=== PATIENT | female | born 1985 | race Caucasian/White ===

== ENCOUNTER 2019-10-29 17:08 | Emergency (ER) | payer OTHER, SELFPAY ==
--- NOTE | ~2019-10-29 | XR_ITS ---
EXAMINATION: XR abdomen obstructive series DATE: 10/29/2019 18:15 INDICATION: Abdominal pain and constipation. 4 days postop. TECHNIQUE: Supine and upright views of the abdomen. FINDINGS: 11/11/2015 The visualized lung parenchyma is normal.. There is a nonspecific bowel gas pattern. There is moderat e gas in the small bowel centrally without significant dilation. There are air-fluid levels. Gas and stool are seen throughout the colon to the level of the rectum. There is no free air. There is sligh t diastases of the pubic symphysis. IMPRESSION: 1. Nonspecific bowel gas pattern, possibly ileus. Reviewed, dictated and finalized at location A.
[2019-10-29 17:37] VITALS: BP 131/88; PULSE 89; RESP 24; TEMP 37; O2SAT 100
[2019-10-29 17:48] LABS: Hemoglobin 10.8 g/dL (12.0-15.0); Mean Corpuscular HGB Conc 32.7 g/dl (32-36); Mean Corpuscular Hemoglobin 30.4 pg (26-34); Mean Platelet Volume 11.6 fl (7.4-10.4); Platelet Count Result 179 k/mm3 (150-375); Red Blood Count 3.55 M/mm3 (4.2-5.4); Red Cell Distribution Width 12.8 % (11.5-14.5); White Blood Count 9.8 K/mm3 (4.5-10.0)
[2019-10-29 18:00] LABS: Alanine Aminotransferase 23 U/L (4-35); Albumin Level 3.6 g/dL (3.5-5.1); Alkaline Phosphatase 176 U/L (38-126); Aspartate Amino Transferase 41 U/L (14-36); Bilirubin,Total 0.2 mg/dL (0.2-1.3); Blood Urea Nitrogen 9 mg/dL (7-17); Calcium 8.3 mg/dL (8.4-10.2); Carbon Dioxide 26 mmol/L (22-30); Chloride 107 mmol/L (98-107); Estimated CRCL calculation 115 ml/min; Estimated Glomerular Filt Rate > 60; Glucose 99 mg/dL (65-105); Lipase 66 U/L (23-300); Sodium 139 mmol/L (137-145)
[2019-10-29 18:11] LABS: Band Neutrophils Percent 3 % (0-6); Eosinophils Absolute Manual 0.09 K/mm3 (0.02-0.5); Eosinophils Percent Manual 1 % (0-4); Lymphocytes Absolute Manual 0.98 K/mm3 (1.1-4.5); Monocytes Absolute Manual 0.29 K/mm3 (0.1-0.90); Monocytes Percent Manual 3 % (3-9); Neutrophils Absolute Manual 8.42 K/mm3 (1.7-7.2); Neutrophils Percent Manual 83 % (46-73); Platelet Estimate Adequate (Adequate); Total Cells Counted 100
[2019-10-29] MEDS: SODIUM CHLORIDE 0.9% IV 1,000 ML 999 ML IV CONT (18:26)
[2019-10-29] MEDS: FAMOTIDINE 20 MG/2 ML VIAL IV PUSH (18:28)
[2019-10-29] MEDS: polyethylene glycoL 3350 17 GM POWD.PACK PO ×2 (18:43→20:37)
[2019-10-29] MEDS: LIDOCAINE HCL 2% GEL UROJET 10 ML PKG (18:44)
[2019-10-29] MEDS: IBUPROFEN IV 800 MG/200 ML 800 MG/200 ML BAG 400 MG IVPB (19:32)
--- NOTE | 2019-10-29 20:22 | ED.GENADULT ---
HPI - General Adult General Chief complaint: Unspecified <BASILIO Mandujano Last Filed: 10/29/19 20:44> Stated complaint: constipated. 4 days post <BASILIO Mandujano Last Filed: 10/29/19 20:44> Time Seen by Provider: 10/29/19 17:52 <BASILIO Mandujano Last Filed: 10/29/19 20:44> Source: patient and family <BASILIO Mandujano Last Filed: 10/29/19 20:44> Mode of arrival: ambulatory <BSAILIO Mandujano Last Filed: 10/29/19 20:44> Limitations: no limitations <BASILIO Mandujano Last Filed: 10/29/19 20:44> History of Present Illness HPI narrative: Patient is a 34-year-old female who presents to emergency department for evaluation of not having had a bowel movement for the last 5 days patient is 5 days status post vaginal delivery. Patient has been attempting [id number] stool softeners and laxatives with no improvement. Patient notes discomfort in the lower pelvic region and left side of the abdomen. Patient denies any fever chills nausea vomiting rectal bleeding or melena. Patient notes she does have hemorrhoids currently. <BASILIO Mandujano Last Filed: 10/29/19 20:44> Related Data Home medications: Home Medications Medication Instructions Recorded Confirmed alprazolam 0.25 mg PO HS PRN 10/29/19 10/29/19 cyclobenzaprine 10 mg PO BID PRN 10/29/19 10/29/19 trazodone 50 mg PO HS 10/29/19 10/29/19 <BASILIO Mandujano Last Filed: 10/29/19 20:44> Allergies/adverse reactions: Allergies Allergy/AdvReac Type Severity Reaction Status Date / Time latex Allergy Intermediate HIVES Verified 10/29/19 18:01 Penicillins Allergy Unknown Hives Verified 10/29/19 18:01 sulfamethoxazole Allergy Unknown Anaphylactic Verified 10/29/19 18:01 Shock trimethoprim Allergy Unknown Anaphylactic Verified 10/29/19 18:01 Shock metoclopramide [From Reglan] AdvReac Anxiety Verified 10/29/19 18:01 <BASILIO Mandujano Last Filed: 10/29/19 20:44> Review of Systems Review of Systems: All systems reviewed & are unremarkable except as noted in HPI and below <Rakesh Samano PA-C - Last Filed: 10/29/19 20:44> [facility] Past Medical History Medical History: Medical History (Updated 10/30/19 @ 00:00 by Shayna Bailey) Anxiety <Rakesh Samano PA-C - Last Filed: 10/29/19 20:44> Social History Social History: Social History Gender identity (if verbalized by the patient): Female <Rakesh Samano PA-C - Last Filed: 10/29/19 20:44> Exam Narrative: Exam Narrative: GENERAL: Well-appearing, well-nourished, and in no acute distress. HEAD: Normocephalic, atraumatic. EYES: PERRLA and EOMI. ENT: Nares clear, no rhinorrhea or epistaxis. Mucous membranes moist. CHEST: Clear to auscultation. No respiratory distress. No wheezes rales or rhonchi HEART: Regular rate and rhythm. No murmur heard. Normal peripheral pulses. ABDOMEN: Soft, tenderness in the lower abdomen, distended EXTREMITIES: Normal range of motion. No edema. SKIN: Warm, dry, no rash. NEURO: No focal deficits. Alert and oriented x3. PSYCH: Normal mood and affect. <Rakesh Samano PA-C - Last Filed: 10/29/19 20:44> Course Course Emergency Course: Patient in the room at this time successfully able to have a bowel movement passing her stool ball. <Rakesh Samano PA-C - Last Filed: 10/29/19 20:44> Vital Signs Vital signs: Vital Signs Temperature 98.6 F 10/29/19 17:37 Pulse Rate 89 10/29/19 17:37 Respiratory Rate 24 H 10/29/19 17:37 Blood Pressure 131/88 10/29/19 17:37 Pulse Oximetry 100 10/29/19 17:37 Temperature 98.6 F 10/29/19 17:37 Pulse Rate 83 10/29/19 20:55 Respiratory Rate 20 10/29/19 20:55 Blood Pressure 134/74 10/29/19 20:55 Pulse Oximetry 99 10/29/19 20:55 <Rakesh Samano PA-C - Last Filed: 10/29/19
[2019-10-29 20:55] VITALS: BP 134/74; PULSE 83; RESP 20; O2SAT 99
--- NOTE | 2019-10-29 20:57 | PC.NURSE ---
1845 small results from soap suds enema only took in small amt of water 1930 took in alot more water this time and was able to pass large amt of stool pt feels much better
== END 2019-10-29 20:57 | disposition home or self-care (01) ==
PROVIDERS: Emergency Provider Emergency Medicine; PCP Registered Nurse
DX: O99.63 Diseases of the digestive system complicating the puerperium (principal); K59.00 Constipation, unspecified; O99.345 Other mental disorders complicating the puerperium; F41.9 Anxiety disorder, unspecified; R93.5 Abnormal findings on diagnostic imaging of other abdominal regions, including retroperitoneum
CPT/HCPCS: 36415; 74019; 80053; 83690; 85025; 96361; 96365; 96367; 96375; 99284; J0131; J1741; J2060; J7030

== ENCOUNTER 2020-02-22 13:02 | Emergency (ER) | payer OTHER, SELFPAY ==
[2020-02-22] VITALS (9 sets, daily range): BP systolic 108–147; BP diastolic 73–93; PULSE 86–107; RESP 12–18; TEMP 36.7; O2SAT 98–100
[2020-02-22 14:36] LABS: Basophils Percent Auto 0.4 % (0.2-1.2); Eosinophils Percent Auto 0.3 % (0-4.4); Hematocrit 39.5 % (37.0-47.0); Hemoglobin 13.1 g/dL (12.0-15.0); Immature Granulocyte Absolute 0.02 K/mm3 (0.00-0.031); Immature Granulocyte Percent A 0.3 % (0-0.5); Lymphocytes Absolute Auto 1.27 K/mm3 (0.9-3.2); Lymphocytes Percent Auto 17.8 % (18.3-44.2); Mean Corpuscular HGB Conc 33.2 g/dl (32-36); Mean Corpuscular Hemoglobin 29.4 pg (26-34); Mean Corpuscular Volume 88.8 fl (80-100); Mean Platelet Volume 10.7 fl (7.4-10.4); Monocytes Absolute Auto 0.3 K/mm3 (0.1-0.6); Monocytes Percent Auto 3.5 % (2.6-8.5); Neutrophils Absolute Auto 5.6 K/mm3 (1.3-6.7); Neutrophils Percent Auto 77.7 % (45.5-73.1); Platelet Count Result 231 k/mm3 (150-375); Red Blood Count 4.45 M/mm3 (4.2-5.4); Red Cell Distribution Width 12.7 % (11.5-14.5); White Blood Count 7.1 K/mm3 (4.5-10.0)
[2020-02-22 14:51] LABS: Alanine Aminotransferase 20 U/L (4-35); Albumin Level 4.6 g/dL (3.5-5.1); Alkaline Phosphatase 83 U/L (38-126); Anion Gap 10 mmol/L (8-16); Aspartate Amino Transferase 30 U/L (14-36); Bilirubin,Total 0.3 mg/dL (0.2-1.3); Blood Urea Nitrogen 9 mg/dL (7-17); Calcium 9.6 mg/dL (8.4-10.2); Carbon Dioxide 27 mmol/L (22-30); Chloride 105 mmol/L (98-107); Estimated CRCL calculation 96 ml/min; Estimated Glomerular Filt Rate > 60; Glucose 118 mg/dL (65-105); Potassium 3.9 mmol/L (3.4-5.0); Sodium 142 mmol/L (137-145)
--- NOTE | 2020-02-22 19:28 | ED.ANXIETY ---
HPI - Anxiety General Chief Complaint: Anxiety Stated Complaint: multiple complaints/headache/abd pain/dizziness Time Seen by Provider: 02/22/20 18:23 History of Present Illness HPI narrative: Patient is a 34-year-old female who presents to emergency department for evaluation of anxiety and panic attacks of increasing nature patient with longstanding history of anxiety panic attacks has been also be getting migraine headaches patient lives at home has fear over the pandemic has no friends but does have her at home is also has young children that she is feeling are also causing stress. Patient denies any suicidal or homicidal ideation. Patient saw her therapist on Tuesday and was started on Valium. Related Data Home Medications Medication Instructions Recorded Confirmed alprazolam 0.25 mg PO HS PRN 10/29/19 10/29/19 cyclobenzaprine 10 mg PO BID PRN 10/29/19 10/29/19 trazodone 50 mg PO HS 10/29/19 10/29/19 Allergies Allergy/AdvReac Type Severity Reaction Status Date / Time latex Allergy Intermediate HIVES Verified 02/22/20 14:25 Penicillins Allergy Unknown Hives Verified 02/22/20 14:25 sulfamethoxazole Allergy Unknown Anaphylactic Verified 02/22/20 14:25 Shock trimethoprim Allergy Unknown Anaphylactic Verified 02/22/20 14:25 Shock metoclopramide [From Reglan] AdvReac Anxiety Verified 02/22/20 14:25 Review of Systems Review of Systems: All systems reviewed & are unremarkable except as noted in HPI and below PMFSH Past Medical History Medical History Anxiety Social History Social History (Updated 02/22/20 @ 19:32 by Rakesh Samano PA-C) Substance use type: marijuana Gender identity (if verbalized by the patient): Female Exam Narrative: Exam Narrative: GENERAL: Well-appearing, well-nourished, and in no acute distress. HEAD: Normocephalic, atraumatic. EYES: PERRLA and EOMI. ENT: Nares clear, no rhinorrhea or epistaxis. Mucous membranes moist. CHEST: Clear to auscultation. No respiratory distress. No wheezes rales or rhonchi HEART: Regular rate and rhythm. No murmur heard. Normal peripheral pulses. ABDOMEN: Soft, nontender, nondistended EXTREMITIES: Normal range of motion. No edema. SKIN: Warm, dry, no rash. NEURO: No focal deficits. Alert and oriented x3. Cranial nerves II through XII grossly intact PSYCH: Acutely anxious normal affect Course Course Emergency Course: Patient in the room at this time felt appropriate for discharge home will follow with primary care and specialist no high risk changes in the blood work was given medications with improvement Vital Signs Vital signs: Vital Signs Temperature 98.0 F 02/22/20 14:19 Pulse Rate 105 H 02/22/20 14:19 Respiratory Rate 18 02/22/20 14:19 Blood Pressure 119/76 02/22/20 14:19 Pulse Oximetry 98 02/22/20 14:19 Temperature 98.0 F 02/22/20 14:19 Pulse Rate 86 02/22/20 20:22 Respiratory Rate 12 02/22/20 20:22 Blood Pressure 115/88 02/22/20 20:22 Pulse Oximetry 100 02/22/20 20:22 MDM - Anxiety MDM Narrative Medical decision making narrative: Patient in the room in no distress with anxiety and panic disorder will be discharged home with plan follow-up with primary care patient felt appropriate for outpatient reevaluation Lab Data Result diagrams: 02/22/20 14:27 02/22/20 14:27 Labs: Lab Results 02/22/20 02/22/20 02/22/20 Range/Units 14:27 14:27 19:35 WBC 7.1 (4.5-10.0) K/mm3 RBC 4.45 (4.2-5.4) M/mm3 Hgb 13.1 (12.0-15.0) g/dL Hct 39.5 (37.0-47.0) % MCV 88.8 (80-100) fl MCH 29.4 (26-34) pg MCHC 33.2 (32-36) g/dl RDW 12.7 (11.5-14.5) % Plt Count 231 (150-375) k/mm3 MPV 10.7 H (7.4-10.4) fl Immature Gran % (Auto) 0.3 (0-0.5) % Neut % (Auto) 77.7 H (45.5-73.1) % Lymph % (Auto) 17.8 L (18.3-44.2) % [place] % (Auto) 3.5 (2.6-8.5) % Eos
[2020-02-22] MEDS: diazePAM INJ (*CRX) 10 MG/2 ML SYRINGE 5 MG IV PUSH (19:34)
[2020-02-22] MEDS: SODIUM CHLORIDE 0.9% IV 1,000 ML 999 ML IV CONT (19:34)
[2020-02-22 19:51] LABS: Add Urine Microscopic? YES; Appearance Urine Cloudy (Clear); Bilirubin Urine Negative (Negative); Blood Urine Negative (Negative); Color Urine Yellow (Yellow); Glucose Urine UA Negative (Negative); Ketones Urine 1+ mg/dL (Negative); Leukocyte Esterase Ur Negative LEU/UL (Negative); Mucus Urine Heavy /lpf; Nitrate Urine Negative (Negative); Protein Urine 1+ mg/dL (Negative); RBC Urine 0-2 /hpf (0-2); Specific Grav Ur 1.021 (1.001-1.035); Squamous Epithelial Cell Urine Many /hpf (Few); Urobilinogen Urine Negative mg/dL (<2.0); WBC Urine 0-3 /hpf
[2020-02-22] MEDS: LORazepam INJ (*CRX) 2 MG/ML VIAL 1 MG IV PUSH (20:57)
== END 2020-02-22 21:36 | disposition home or self-care (01) ==
PROVIDERS: Emergency Medicine Emergency Medical Services; Emergency Provider Emergency Medicine; PCP Registered Nurse
DX: F41.9 Anxiety disorder, unspecified (principal); G43.909 Migraine, unspecified, not intractable, without status migrainosus
CPT/HCPCS: 36415; 80053; 81001; 81025; 85025; 96361; 96374; 96375; 99284; J2060; J3360; J7030

== ENCOUNTER → 2020-04-14 10:52 | Outpatient (CLI) | payer OTHER, SELFPAY ==
--- NOTE | ~2020-04-14 | US_ITS ---
EXAMINATION: US abdomen complete DATE: 04/14/2020 11:16 INDICATION: Unspecified abdominal pain TECHNIQUE: Multiple grayscale and Doppler ultrasound images of the abdomen were obtained. COMPARISON: 11/11/2015 FINDINGS: The head and body of the pancreas are normal. The pancreatic tail is obscured by bowel gas. The liver is normal with normal echogenicity and echotexture. No surface nodularity. Normal hepatope mason flow in the main portal vein. The gallbladder is normal with no abnormal wall thickening, pericho lecystic fluid or stones. The normal common bile duct measures 3 mm. There was no sonographic Solitario sign. The visualized portions of the aorta and inferior vena cava are normal. The right kidney measures 11.2 x 4.4 x 5.6 cm. The left kidney measures 10.6 x 4.8 x 4.9 cm. The kidn eys demonstrate normal parenchymal echogenicity. There is no hydronephrosis. The spleen is normal in appearance and measures 10.1 cm. IMPRESSION: 1. No sonographic correlate for the patient's symptoms. Reviewed, dictated and finalized at location A. AL ARTS THERAPIST
== END ==
PROVIDERS: PCP Nurse Practitioner; Visit Provider Nurse Practitioner
DX: R10.9 Unspecified abdominal pain (principal)
CPT/HCPCS: 76700

== ENCOUNTER 2020-06-30 08:18 | Outpatient (CLI) | payer OTHER, SELFPAY ==
--- NOTE | ~2020-06-30 | NM_ITS ---
EXAM: NM gastric emptying study DATE: 06/30/2020 13:06 INDICATION: Nausea and vomiting. TECHNIQUE: A gastric emptying study was performed using the methodology of Dayday PURI, et al. J Nucl Med 2007; 48:568-572. The patient was given a meal consisting of 2 scrambled eggs labeled with 0.944 mCi Tc-99m sulfur colloid, 2 slices of toast, two packages of jam, and approximately 120 mL of water . Simultaneous anterior and posterior 1-min images of the abdomen were obtained with the patient supi ne at multiple time points over a total period of 4 hours. The geometric mean of anterior and posteri or views was determined, and the percentage retention was calculated for each time point. COMPARISON: CT abdomen and pelvis 01/02/2018 FINDINGS: Gastric retention of the radiotracer-labeled meal was 62%, 34%, and 3% at the 1-hour, 2-ho ur, and 4-hour time points, respectively. With this technique, apparent rapid gastric emptying is sug gested by <30% gastric retention at 1 hour. Delayed gastric emptying is defined by gastric retention of >90% at 1 hour, >60% retention at 2 hours, or >10% retention at 4 hours. IMPRESSION: 1. Normal gastric emptying. Reviewed, dictated and finalized at location A. NICAL SYSTEM ANALYST IMPRESSION: 1. Normal gastric emptying.
== END 2020-06-30 08:19 | disposition home or self-care (01) ==
PROVIDERS: PCP Nurse Practitioner; Visit Provider Internal Medicine Gastroenterology
DX: R11.2 Nausea with vomiting, unspecified (principal)
CPT/HCPCS: 78264; A9541

== ENCOUNTER → 2020-07-22 00:34 | Outpatient (CLI) | payer OTHER, SELFPAY ==
[2020-07-22 18:31] LABS: SARS-CoV-2 RNA PCR Negative
== END ==
PROVIDERS: PCP Nurse Practitioner; Visit Provider Internal Medicine Gastroenterology
DX: Z01.812 Encounter for preprocedural laboratory examination (principal); Z20.822 Contact with and (suspected) exposure to COVID-19
CPT/HCPCS: C9803; U0003; U0005

== ENCOUNTER 2020-07-25 04:12 | Day surgery (SDC) | payer OTHER, SELFPAY ==
[2020-07-15 13:25] VITALS: BMI 29.2
[2020-07-25] MEDS: LACTATED RINGERS 1,000 ML 150 ML IV CONT (09:38)
[2020-07-25 09:41] VITALS: BP 103/65; PULSE 83; RESP 20; TEMP 36.2; O2SAT 99; BMI 27.7
--- NOTE | 2020-07-25 10:01 | WPDANESEPPF ---
Anes - Initial Pre Proc Eval Procedure: Operation Date: 07/25/20 09:00 Proposed Procedures p Esophagogastroduodenoscopy - Mihai Knox MD Date/Time: 07/25/20 10:01 Surgeon: Mihai Knox MD Pre Op Diagnosis: nausea, vomiting Patient Data Age: 35 Gender: F Height: 5 ft 3 in Weight: 71.1 kg Last Vital Signs Temp 97.1 F L 07/25/20 09:41 Pulse 83 07/25/20 09:41 Resp 20 07/25/20 09:41 BP 103/65 07/25/20 09:41 Pulse Ox 99 07/25/20 09:41 Allergies Allergy/AdvReac Type Severity Reaction Status Date / Time amoxicillin Allergy hives Verified 07/25/20 09:17 sulfamethoxazole Allergy throat Verified 07/25/20 09:17 [From Bactrim] swelling trimethoprim [From Bactrim] Allergy throat Verified 07/25/20 09:17 swelling metoclopramide [From Reglan] AdvReac Anxiety Verified 07/25/20 09:17 Home Medications Medication Instructions Recorded Confirmed Type hydroxyzine HCl 50 mg tablet 50 mg PO TID 03/13/20 07/15/20 History multivitamin with minerals 1 tablet PO DAILY 03/13/20 07/15/20 History sucralfate 1 gram tablet 1 g PO BID tablet 03/13/20 07/15/20 History omeprazole 40 mg capsule,delayed 40 mg PO DAILY #90 cap 05/21/20 07/15/20 Rx release diazepam 10 mg tablet 10 mg PO TID PRN 06/05/20 07/15/20 History famotidine 20 mg tablet 20 mg PO DAILY #30 tablet 06/05/20 07/15/20 Rx promethazine 25 mg tablet 25 mg PO BID PRN tablet 06/05/20 07/15/20 History tizanidine 2 mg tablet See Rx Instructions .ROUTE 07/04/20 07/15/20 Rx .COMPLEX #60 tablet ondansetron HCl 4 mg tablet See Rx Instructions .ROUTE 07/14/20 07/15/20 Rx .COMPLEX #30 tablet trazodone 100 mg PO HS 07/15/20 07/15/20 History acidophilus-pectin, citrus 1 cap PO DAILY 07/25/20 07/25/20 History [Acidophilus Probiotic] Patient hx anesthesia problems: none Family hx anesthesia problems: none [facility] Past Medical History Medical History Allergies Anxiety Anxiety GERD (gastroesophageal reflux disease) Headache, migraine Nausea & vomiting Stomach ulcer UTI (urinary tract infection) Chronic UTI's after sex Surgical History Surgical History History of dilatation and curettage Family History Family History Mother Diabetes mellitus COPD (chronic obstructive pulmonary disease) Arthrosis Father Hypertension Migraine High cholesterol Grandparent Alzheimers disease Diabetes mellitus Heart disease Grandparent Heart disease Grandparent Diabetes mellitus Arthrosis Sibling Depression Epilepsy Migraine Social History Social History (Updated 06/05/20 @ 11:58 by Stella Galindo CMA) Smoking status: Never smoker Tobacco type: cigarettes and e-cigarettes/vaping Alcohol intake: never Substance use type: does not use Living arrangements: with family Gender identity (if verbalized by the patient): Female Spiritual care concerns: No Anes - Eval Final PreProcedure Day of Procedure 07/25/20 10:01 Patient weight: normal Heart: regular rate and rhythm Lungs: clear to auscultation Airway: Mallampati scale class II Neurological: alert and oriented Last oral intake: >/= 8 hours ASA classification: II Emergent: no Anesthetic plan: proceed Anesthesia type and monitoring: general GIVS and standard monitoring Informed Consent: The patient's anesthetic plan and its attendant risks and benefits were discussed with the patient/family/POA. Questions were solicited and answers provided to the satisfaction of the patient/family/POA.
--- NOTE | 2020-07-25 10:15 | PM.HPGS ---
History of Present Illness History of Present Illness Consent: Risks, benefits, and alternatives have been discussed and questions answered. Patient agrees to proceed with procedure. Chief complaint: nausea, vomiting Narrative: Jody Iyer is a 35 year old female referred for persistent nausea vomiting abdominal pain. This has been present for 3 years. She was originally told that she had ulcers when she had EGD in [place] of an . Apparently no biopsies were done. She has been on medicine for nausea as well as Carafate and omeprazole continuously without any relief. Apparently ultrasound recently was done that was negative Review of Systems Review of Systems: All systems reviewed & are unremarkable except as noted in HPI and below PMFSH Past Medical History Medical History Allergies Anxiety Anxiety GERD (gastroesophageal reflux disease) Headache, migraine Nausea & vomiting Stomach ulcer UTI (urinary tract infection) Chronic UTI's after sex Surgical History Surgical History History of dilatation and curettage Family History Family History Mother Diabetes mellitus COPD (chronic obstructive pulmonary disease) Arthrosis Father Hypertension Migraine High cholesterol Grandparent Alzheimers disease Diabetes mellitus Heart disease Grandparent Heart disease Grandparent Diabetes mellitus Arthrosis Sibling Depression Epilepsy Migraine Social History Social History Smoking status: Never smoker Tobacco type: cigarettes and e-cigarettes/vaping Alcohol intake: never Substance use type: does not use Living arrangements: with family Gender identity (if verbalized by the patient): Female Spiritual care concerns: No Meds Home Medications and Allergies Home Medications Medication Instructions Recorded Confirmed Type hydroxyzine HCl 50 mg tablet 50 mg PO TID 03/13/20 07/15/20 History multivitamin with minerals 1 tablet PO DAILY 03/13/20 07/15/20 History sucralfate 1 gram tablet 1 g PO BID tablet 03/13/20 07/15/20 History omeprazole 40 mg capsule,delayed 40 mg PO DAILY #90 cap 05/21/20 07/15/20 Rx release diazepam 10 mg tablet 10 mg PO TID PRN 06/05/20 07/15/20 History famotidine 20 mg tablet 20 mg PO DAILY #30 tablet 06/05/20 07/15/20 Rx promethazine 25 mg tablet 25 mg PO BID PRN tablet 06/05/20 07/15/20 History tizanidine 2 mg tablet See Rx Instructions .ROUTE 07/04/20 07/15/20 Rx .COMPLEX #60 tablet ondansetron HCl 4 mg tablet See Rx Instructions .ROUTE 07/14/20 07/15/20 Rx .COMPLEX #30 tablet trazodone 100 mg PO HS 07/15/20 07/15/20 History acidophilus-pectin, citrus 1 cap PO DAILY 07/25/20 07/25/20 History [Acidophilus Probiotic] Allergies Allergy/AdvReac Type Severity Reaction Status Date / Time amoxicillin Allergy hives Verified 07/25/20 09:17 sulfamethoxazole Allergy throat Verified 07/25/20 09:17 [From Bactrim] swelling trimethoprim [From Bactrim] Allergy throat Verified 07/25/20 09:17 swelling metoclopramide [From Reglan] AdvReac Anxiety Verified 07/25/20 09:17 Vital Signs Vital Signs - 24 hr 07/25/20 09:41 Temperature 36.2 C L Pulse Rate 83 Respiratory Rate 20 Blood Pressure 103/65 Pulse Oximetry 99 Exam Const: General: alert Orientation/consciousness: patient oriented x3 Resp: Auscultation: clear to auscultation bilaterally Cardio: Rhythm: regular rhythm GI: GI Palp: Yes Soft to palpation and No Tenderness to palpation present (GI) Neuro: General: patient oriented x3 Assessment and Plan Assessment and plan (1) Nausea & vomiting: Code(s): R11.2 - Nausea with vomiting, unspecified Status: Acute Assessment and Plan: EGD with possible biopsy or dilatation or cautery.
[2020-07-25 10:27] VITALS: BP 99/64; PULSE 64; RESP 29; O2SAT 97
[2020-07-25 10:37] VITALS: BP 111/79; PULSE 66; RESP 23; O2SAT 99
[2020-07-25 11:07] VITALS: BP 110/75; PULSE 69; RESP 15; O2SAT 98
== END 2020-07-25 11:22 | disposition home or self-care (01) ==
PROVIDERS: PCP Nurse Practitioner; Visit Provider Internal Medicine Gastroenterology
PROC: 0DJ08ZZ Inspection of Upper Intestinal Tract, Via Natural or Artificial Opening Endoscopic (ICD-10-PCS; CPT 43235; principal; 2020-07-25 09:00)
DX: R11.2 Nausea with vomiting, unspecified (principal); K21.9 Gastro-esophageal reflux disease without esophagitis; F41.9 Anxiety disorder, unspecified; F17.298 Nicotine dependence, other tobacco product, with other nicotine-induced disorders; Z87.11 Personal history of peptic ulcer disease
CPT/HCPCS: 43239; 87081; 88305; C9803; J2001; J2704; J7120; U0003; U0005

== ENCOUNTER 2020-10-29 23:43 | Emergency (ER) | payer OTHER, SELFPAY ==
[2020-10-29 23:47] VITALS: BP 122/76; PULSE 74; RESP 16; TEMP 36.4; O2SAT 100
[2020-10-29 23:56] VITALS: RESP 18
--- NOTE | 2020-10-29 23:59 | PC.NURSE ---
Pt states she was not trying to hurt herself when she overdosed, reports feeling overwhelmed and could feel herself going into a panic , so she took extra anxiety medication. Pt states she has a fear of dying related to her anxiety.
--- NOTE | 2020-10-29 23:59 | PC.NURSE ---
poison controll contacted. spoke with Izabela MA, subtoxic level of meds. pt may have sinus tach, gi upset and be drowsy. recommends doing all the od labs.
--- NOTE | 2020-10-30 00:08 | PC.NURSE ---
tried to call patient father per her request. [phone] there was no answer, could not leave a message.
--- NOTE | 2020-10-30 00:25 | ECG_ITS ---
Measurements Intervals [place] Rate: 73 P: 25 MN: 110 QRS: 71 QRSD: 106 T: 15 QT: 411 QTc: 455 Interpretive Statements SINUS RHYTHM WITH SHORT MN INTERVAL INCOMPLETE RIGHT BUNDLE BRANCH BLOCK BASELINE ARTIFACT- I, II, AVR, AVL, AVF, V1-V2 BORDERLINE ECG Electronically Signed On 10-30-2020 7:52:08 CDT by Aydin Calderon D.O.
[2020-10-30 00:29] LABS: Basophils Percent Auto 0.5 % (0.2-1.2); Eosinophils Absolute Auto 0.3 K/mm3 (0-0.3); Eosinophils Percent Auto 5.2 % (0-4.4); Hematocrit 39.7 % (37.0-47.0); Hemoglobin 12.9 g/dL (12.0-15.0); Immature Granulocyte Absolute 0.01 K/mm3 (0.00-0.031); Immature Granulocyte Percent A 0.2 % (0-0.5); Lymphocytes Absolute Auto 2.57 K/mm3 (0.9-3.2); Lymphocytes Percent Auto 41.6 % (18.3-44.2); Mean Corpuscular HGB Conc 32.5 g/dl (32-36); Mean Corpuscular Volume 92.3 fl (80-100); Monocytes Absolute Auto 0.4 K/mm3 (0.1-0.6); Monocytes Percent Auto 7.1 % (2.6-8.5); Neutrophils Absolute Auto 2.8 K/mm3 (1.3-6.7); Neutrophils Percent Auto 45.4 % (45.5-73.1); Platelet Count Result 171 k/mm3 (150-375); Red Cell Distribution Width 13.2 % (11.5-14.5); White Blood Count 6.2 K/mm3 (4.5-10.0)
[2020-10-30 00:40] LABS: Add Urine Microscopic? NO; Appearance Urine Clear (Clear); Bilirubin Urine Negative (Negative); Blood Urine Negative (Negative); Color Urine Straw (Yellow); Glucose Urine UA Negative (Negative); Ketones Urine Negative (Negative); Leukocyte Esterase Ur Negative LEU/UL (Negative); Nitrate Urine Negative (Negative); Protein Urine Negative (Negative); Specific Grav Ur 1.005 (1.001-1.035); Urobilinogen Urine Negative mg/dL (<2.0)
[2020-10-30 00:40] LABS: Acetaminophen < 10 ug/mL (10-30); Ethanol < 10 mg/dL (<10); Salicylate < 1.0 mg/dL (2-20)
[2020-10-30 00:41] LABS: Alanine Aminotransferase 10 U/L (4-35); Albumin Level 4.4 g/dL (3.5-5.1); Alkaline Phosphatase 64 U/L (38-126); Anion Gap 8 mmol/L (8-16); Aspartate Amino Transferase 25 U/L (14-36); Bilirubin,Total 0.3 mg/dL (0.2-1.3); Blood Urea Nitrogen 13 mg/dL (7-17); Calcium 9.1 mg/dL (8.4-10.2); Carbon Dioxide 26 mmol/L (22-30); Chloride 107 mmol/L (98-107); Estimated Glomerular Filt Rate > 60; Glucose 94 mg/dL (65-105); Potassium 3.5 mmol/L (3.4-5.0); Sodium 141 mmol/L (137-145)
[2020-10-30 01:10] LABS: Amphetamine Screen Urine Negative (Negative); Barbiturate Screen Urine Negative (Negative); Benzodiazepines Screen Urine Positive (Negative); Cannabinoid Screen Urine Positive (Negative); Cocaine Screen Urine Negative (Negative); Methadone Screen Urine Negative (Negative); Opiate Screen Urine Negative (Negative); Phencyclidine Screen Urine Negative (Negative)
[2020-10-30 01:43] VITALS: BP 102/64; PULSE 93; RESP 20; O2SAT 98
--- NOTE | 2020-10-30 02:59 | ED.GENADULT ---
HPI - General Adult General Chief complaint: Overdose Stated complaint: od Time Seen by Provider: 10/29/20 23:53 History of Present Illness HPI narrative: Patient 35-year-old female presents to emergency department with chief complaint of overdose. Patient reports that she has been under more stress lately and tonight got into a argument with her neighbors and also her and reports that to try to relax she took 6 of her hydroxyzine. The patient states that she did make a post on social media that could be interpreted that she may have wanted to hurt herself but denies suicidal or homicidal ideation. Patient states that she has been trying to get into see a counselor but has not been able to schedule an appointment. The patient currently states that she feels fine states that she is not actively suicidal or homicidal and reports that she does not want to hurt herself and actually her greatest fear is that she would . Related Data Home Medications Medication Instructions Recorded Confirmed hydroxyzine HCl 50 mg tablet 50 mg PO TID 03/13/20 10/10/20 multivitamin with minerals 1 tablet PO DAILY 03/13/20 10/10/20 diazepam 10 mg tablet 10 mg PO TID PRN 06/05/20 10/10/20 promethazine 25 mg tablet 25 mg PO BID PRN tablet 06/05/20 10/10/20 acidophilus-pectin, citrus 1 cap PO DAILY 07/25/20 10/10/20 Allergies Allergy/AdvReac Type Severity Reaction Status Date / Time amoxicillin Allergy hives Verified 07/25/20 09:17 Latex, Natural Rubber Allergy Hives Verified 10/10/20 11:36 sulfamethoxazole Allergy throat Verified 07/25/20 09:17 [From Bactrim] swelling trimethoprim [From Bactrim] Allergy throat Verified 07/25/20 09:17 swelling metoclopramide [From Reglan] AdvReac Anxiety Verified 07/25/20 09:17 Review of Systems Review of Systems: Narrative: A 10 system review of systems was completed on the patient and is negative except for what is stated in the HPI. Nursing and ancillary documentation was reviewed. [facility] Past Medical History Medical History Allergies Anxiety Anxiety GERD (gastroesophageal reflux disease) Headache, migraine Nausea & vomiting Spinal stenosis Stomach ulcer UTI (urinary tract infection) Chronic UTI's after sex Surgical History Surgical History History of dilatation and curettage Family History Family History Mother Diabetes mellitus COPD (chronic obstructive pulmonary disease) Arthrosis Father Hypertension Migraine High cholesterol Grandparent Alzheimers disease Diabetes mellitus Heart disease Grandparent Heart disease Grandparent Diabetes mellitus Arthrosis Sibling Depression Epilepsy Migraine Social History Social History Smoking status: Current every day smoker Tobacco type: cigarettes and e-cigarettes/vaping Alcohol intake: never Alcohol use details: rare Substance use type: marijuana Gender identity (if verbalized by the patient): Female Spiritual care concerns: No Exam Narrative: Exam Narrative: GENERAL: Well-appearing, well-nourished, and in no acute distress. HEAD: Normocephalic, atraumatic. EYES: PERRLA and EOMI. ENT: Nares clear, no rhinorrhea or epistaxis. Mucous membranes moist. NECK: Supple. CHEST: Clear to auscultation. No respiratory distress. HEART: Regular rate and rhythm. No murmur heard. Normal peripheral pulses. ABDOMEN: Soft, nontender, nondistended, normal active bowel sounds. EXTREMITIES: Normal range of motion. No edema. SKIN: Warm, dry, no rash. NEURO: No focal deficits. Alert and oriented x3. PSYCH: Normal mood and affect. Course Course Emergency Course: Patient was medically cleared for psychiatric evaluation. Patient was seen by the [facility]
[2020-10-30 03:40] VITALS: BP 111/73; PULSE 75; RESP 20; O2SAT 99
== END 2020-10-30 03:40 | disposition home or self-care (01) ==
PROVIDERS: Emergency Provider Emergency Medicine; PCP Internal Medicine
DX: T43.591A Poisoning by other antipsychotics and neuroleptics, accidental (unintentional), initial encounter (principal); F41.9 Anxiety disorder, unspecified; K21.9 Gastro-esophageal reflux disease without esophagitis; Z87.440 Personal history of urinary (tract) infections; F17.220 Nicotine dependence, chewing tobacco, uncomplicated; I45.10 Unspecified right bundle-branch block
CPT/HCPCS: 36415; 80053; 80307; 81003; 81025; 84443; 85025; 93005; 99284

== ENCOUNTER 2022-10-11 15:10 | Emergency (ER) | payer OTHER, SELFPAY ==
[2022-10-11] VITALS (13 sets, daily range): BP systolic 108; BP diastolic 63–83; PULSE 62–97; RESP 15–28; TEMP 36.6; O2SAT 92–99
--- NOTE | ~2022-10-11 | CT_ITS ---
EXAMINATION: CT facial bones w con DATE: 10/11/2022 19:11 INDICATION: left facial abscsess . TECHNIQUE: Computed tomography (CT) of the facial bones and maxillofacial region was performed with 7 5 mL Omnipaque 350 intravenous contrast. 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 The dose-length product was 314.22 mGy-cm. COMPARISON: CT brain 05/25/2018. FINDINGS: Soft Tissues: Mild soft tissue swelling about the left mandible and along the left side of the floor the mouth. No rim-enhancing fluid collections. Prominent but not pathologically enlarged lymph nodes along the mandibular ramus and angle of the jaw. Facial bones: No acute fracture. No lytic or blastic process. Eyes: The globes are intact. The soft tissue planes of the orbits are maintained. Paranasal Sinuses: The visualized aerated spaces are clear. Foreign Bodies: No radiopaque foreign bodies. Other Findings: Focal erosion at the left second mandibular premolar indicative of caries. Periapical lucency at the left second mandibular premolar. Left second mandibular molar periapical lucency also noted. No cortical breakthrough. IMPRESSION: Dental caries and periodontal disease involving the left second mandibular premolar, with adjacent in flammatory soft tissue changes and reactive lymph nodes, without definite evidence of a odontogenic a bscess. Reviewed, dictated and finalized at location K. IMPRESSION: Dental caries and periodontal disease involving the left second mandibular kris olar, with adjacent inflammatory soft tissue changes and reactive lymph nodes, without definite evidence of a odontogenic abscess.
--- NOTE | 2022-10-11 17:00 | ED.GENADULT ---
HPI - General Adult General Chief complaint: Dental/Oral Stated complaint: dental issues Time Seen by Provider: 10/11/22 16:21 History of Present Illness HPI narrative: 37-year-old female presented the emergency department for evaluation of worsening dental pain. Patient states she has had dental pain over the course of the last week, patient was started on antibiotics approximate 1 week ago. Patient is taking 150 mg of clindamycin 3 times daily. Patient had follow-up with her dentist and was referred to the emergency department for evaluation. Related Data Home Medications Medication Instructions Recorded Confirmed hydroxyzine HCl 50 mg tablet 50 mg PO TID 03/13/20 01/19/22 acidophilus 100 million 1 cap PO DAILY 07/25/20 01/19/22 cell-pectin, citrus 10 mg capsule cholecalciferol (vitamin D3) 50 50 mcg PO DAILY 07/07/21 01/19/22 mcg (2,000 unit) capsule cranberry 500 mg capsule 500 mg PO BID 07/07/21 01/19/22 docusate sodium 100 mg capsule 100 mg PO DAILY 07/07/21 01/19/22 (Dulcolax Stool Softener (docusate)) hydroxyzine pamoate 25 mg capsule 25 mg PO TID 07/07/21 01/19/22 (Vistaril) vitamin B complex 1 tablet PO DAILY 07/07/21 01/19/22 famotidine 40 mg tablet 20 mg PO .At Bedtime 12/08/21 01/19/22 mtittshcjtwu-Gi-hobi-minerals 18 tablet PO 12/08/21 01/19/22 mg-0.4 mg tablet Allergies Allergy/AdvReac Type Severity Reaction Status Date / Time amoxicillin Allergy hives Verified 10/11/22 16:04 Latex, Natural Rubber Allergy Hives Verified 10/11/22 16:04 sulfamethoxazole Allergy throat Verified 10/11/22 16:04 [From Bactrim] swelling trimethoprim [From Bactrim] Allergy throat Verified 10/11/22 16:04 swelling metoclopramide [From Reglan] AdvReac Anxiety Verified 10/11/22 16:04 Review of Systems Review of Systems: All systems reviewed & are unremarkable except as noted in HPI and below PMFSH Past Medical History Medical History Allergies Anxiety Anxiety GERD (gastroesophageal reflux disease) Headache, migraine Nausea & vomiting Spinal stenosis Stomach ulcer UTI (urinary tract infection) Chronic UTI's after sex Surgical History Surgical History History of dilatation and curettage Family History Family History Mother Diabetes mellitus COPD (chronic obstructive pulmonary disease) Arthrosis Father Hypertension Migraine High cholesterol Grandparent Alzheimers disease Diabetes mellitus Heart disease Grandparent Heart disease Grandparent Diabetes mellitus Arthrosis Sibling Depression Epilepsy Migraine Social History Social History Smoking status: Former smoker Tobacco type: cigarettes and e-cigarettes/vaping Alcohol intake: current Alcohol use details: rare Substance use: current Substance use type: marijuana Living arrangements: with family Occupation/Education: occupation Gender identity (if verbalized by the patient): Female Spiritual care concerns: No Exam Narrative: APPEARANCE: Well appearing, no pain, no distress, well-nourished. HEAD: normocephalic, atraumatic. EYES: PERRLA/EOMI, conjunctivae clear. NOSE: Normal no drainage EARS:TMS clear with good light reflex. THROAT: Pharynx clear, no exudate. No trismus, no abscess amenable to drainage NECK: Supple. No adenopathy, no masses. No submandibular swelling RESPIRATORY: Airway patent, respirations nonlabored. Clear to auscultation bilaterally, no rales, rhonchi, wheezing. CARDIOVASCULAR: Regular rate and rhythm without murmurs rubs or gallops. ABDOMINAL: Soft, nontender, nondistended, normal bowel sounds MUSCULOSKELETAL: Moves all extremities. Strength/ROM intact, No edema, No calf tenderness. NEURO: Alert. Cranial nerves II through XII intact. Good gait. Go
[2022-10-11] MEDS: SODIUM CHLORIDE 0.9% IV 1,000 ML 999 ML IV CONT (17:21)
[2022-10-11] MEDS: CLINDAMYCIN 600 MG/D5W 50 ML 600 MG/50 ML PIGGYBACK 100 MG IVPB (17:24)
[2022-10-11] MEDS: HYDROmorphone HCL INJ (*CRX) 1 MG/ML SYR 0.5 MG IV PUSH (17:24)
[2022-10-11 17:36] LABS: Basophils Percent Auto 0.6 % (0.2-1.2); Eosinophils Absolute Auto 0.2 K/mm3 (0-0.3); Eosinophils Percent Auto 2.8 % (0-4.4); Hematocrit 41.6 % (37.0-47.0); Immature Granulocyte Absolute 0.01 K/mm3 (0.00-0.031); Immature Granulocyte Percent A 0.2 % (0-0.5); Lymphocytes Percent Auto 38.9 % (18.3-44.2); Mean Corpuscular HGB Conc 33.7 g/dl (32-36); Mean Corpuscular Hemoglobin 31.4 pg (26-34); Mean Corpuscular Volume 93.3 fl (80-100); Monocytes Absolute Auto 0.3 K/mm3 (0.1-0.6); Neutrophils Absolute Auto 2.8 K/mm3 (1.3-6.7); Neutrophils Percent Auto 52.5 % (45.5-73.1); Platelet Count Result 216 k/mm3 (150-375); Red Blood Count 4.46 M/mm3 (4.2-5.4); Red Cell Distribution Width 12.4 % (11.5-14.5); White Blood Count 5.4 K/mm3 (4.5-10.0)
[2022-10-11 18:39] LABS: Alanine Aminotransferase 14 U/L (6-35); Albumin Level 4.1 g/dL (3.5-5.1); Alkaline Phosphatase 55 U/L (38-126); Anion Gap 3 mmol/L (8-16); Aspartate Amino Transferase 22 U/L (14-36); Bilirubin,Total 0.3 mg/dL (0.2-1.3); Blood Urea Nitrogen 16 mg/dL (7-17); Calcium 8.6 mg/dL (8.4-10.2); Carbon Dioxide 29 mmol/L (22-30); Chloride 106 mmol/L (98-107); Estimated CRCL calculation 91 ml/min; Estimated Glomerular Filt Rate > 60; Glucose 91 mg/dL (65-110); Potassium 3.6 mmol/L (3.4-5.0); Sodium 138 mmol/L (137-145)
--- NOTE | 2022-10-11 19:11 | PC.NURSE ---
Patient report given to FRANCESCA Yung. All questions answered and care of patient transferred.
--- NOTE | 2022-10-11 19:19 | PC.NURSE ---
This RN took over care of pt.
[2022-10-11] MEDS: HYDROcodone/acetaminophen (*CRX) 5-325 MG TABLET 1 TAB PO (20:39)
== END 2022-10-11 20:50 | disposition home or self-care (01) ==
PROVIDERS: Emergency Provider Emergency Medicine; PCP Internal Medicine
DX: K02.9 Dental caries, unspecified (principal); K21.9 Gastro-esophageal reflux disease without esophagitis; Z87.440 Personal history of urinary (tract) infections; Z87.891 Personal history of nicotine dependence
CPT/HCPCS: 36415; 70487; 80053; 85025; 96361; 96365; 96375; 99284; A9270; J1170; J7030; Q9967

== ENCOUNTER 2023-02-04 21:08 | Emergency (ER) | payer OTHER, SELFPAY ==
--- NOTE | ~2023-02-04 | XR_ITS ---
XR humerus RT 02/04/2023 22:48 INDICATION: Right arm pain PROCEDURE: 2 views right humerus COMPARISON: No prior studies for comparison. FINDINGS: Fracture, dislocation or subluxation is not identified. The soft tissues appear within norm al limits. No foreign bodies are identified. IMPRESSION: 1: NO ACUTE BONE OR JOINT ABNORMALITY IDENTIFIED. Reviewed, dictated and finalized at location A.
--- NOTE | ~2023-02-04 | XR_ITS ---
XR lumbar spine 2-3V 02/04/2023 22:48 Indication: Back pain Procedure: 3 views lumbar spine Comparison: No prior studies for comparison. Findings: Vertebral body heights are maintained. No evidence for spondylolisthesis. There is mild lev oscoliosis. Pedicles intact. Sacral foramen are symmetric. There is mild disc narrowing at multiple l evels. There is facet hypertrophy at L5-S1 and L4-5. Impression: 1: No acute abnormality of the lumbar spine. Reviewed, dictated and finalized at location A. Impression: 1: No acute abnormality of the lumbar spine.
--- NOTE | ~2023-02-04 | XR_ITS ---
XR forearm RT 2V 02/04/2023 22:48 INDICATION: Right arm pain after fall PROCEDURE: 2 views right forearm COMPARISON: No prior studies for comparison. FINDINGS: Fracture, dislocation or subluxation is not identified. The soft tissues appear within norm al limits. No foreign bodies are identified. IMPRESSION: 1: NO ACUTE BONE OR JOINT ABNORMALITY IDENTIFIED. Reviewed, dictated and finalized at location A.
[2023-02-04 21:11] VITALS: BP 120/73; PULSE 72; RESP 15; TEMP 37; O2SAT 99
[2023-02-05] VITALS (10 sets, daily range): BP systolic 109–121; BP diastolic 75–82; PULSE 80–98; RESP 14–16; O2SAT 96–100
[2023-02-05] MEDS: HYDROcodone/acetaminophen (*CRX) 5-325 MG TABLET 1 TAB PO (01:27)
--- NOTE | 2023-02-05 01:43 | ED.GENADULT ---
HPI - General Adult General Chief complaint: Fall Stated complaint: fell down stairs Time Seen by Provider: 02/05/23 01:07 History of Present Illness HPI narrative: Patient 37-year-old female who presents the emergency department with chief complaint of right upper extremity pain and sciatic pain. The patient reports that she slipped off of the deck fell approximately 3 steps striking her back patient reports no loss of consciousness denies head injury reports that she has pain in her right elbow and right upper extremity the patient reports the pain is worse with movement and improved with rest. Patient reports pain in the right sciatic region patient denies bowel or bladder dysfunction denies foot drop Related Data Home Medications Medication Instructions Recorded Confirmed cholecalciferol (vitamin D3) 50 50 mcg PO DAILY 07/07/21 12/07/22 mcg (2,000 unit) capsule cranberry 500 mg capsule 500 mg PO BID 07/07/21 12/07/22 docusate sodium 100 mg capsule 100 mg PO DAILY 07/07/21 12/07/22 (Dulcolax Stool Softener (docusate)) hydroxyzine pamoate 25 mg capsule 25 mg PO TID 07/07/21 12/07/22 (Vistaril) vitamin B complex 1 tablet PO DAILY 07/07/21 12/07/22 famotidine 40 mg tablet 20 mg PO .At Bedtime 12/08/21 12/07/22 nfyblasnvlsf-Kt-wnai-minerals 18 tablet PO 12/08/21 12/07/22 mg-0.4 mg tablet lactobacillus combination no.4 3 3,000 mmu cells PO DAILY 12/07/22 12/07/22 billion cell capsule (Probiotic) lamotrigine 25 mg tablet 25 mg PO DAILY 12/07/22 12/07/22 Allergies Allergy/AdvReac Type Severity Reaction Status Date / Time amoxicillin Allergy hives Verified 12/07/22 13:23 Latex, Natural Rubber Allergy Hives Verified 12/07/22 13:23 sulfamethoxazole Allergy throat Verified 12/07/22 13:23 [From Bactrim] swelling trimethoprim [From Bactrim] Allergy throat Verified 12/07/22 13:23 swelling metoclopramide [From Reglan] AdvReac Anxiety Verified 12/07/22 13:23 Review of Systems Review of Systems: A 10 system review of systems was completed on the patient and is negative except for what is stated in the HPI. Nursing and ancillary documentation was reviewed. [facility] Past Medical History Medical History Allergies Anxiety Anxiety Depression with anxiety GERD (gastroesophageal reflux disease) Headache, migraine Nausea & vomiting Spinal stenosis Stomach ulcer UTI (urinary tract infection) Chronic UTI's after sex Surgical History Surgical History History of dilatation and curettage Family History Family History Mother Diabetes mellitus COPD (chronic obstructive pulmonary disease) Arthrosis Father Hypertension Migraine High cholesterol Grandparent Alzheimers disease Diabetes mellitus Heart disease Grandparent Heart disease Grandparent Diabetes mellitus Arthrosis Sibling Depression Epilepsy Migraine Social History Social History Smoking status: Former smoker Tobacco type: cigarettes and e-cigarettes/vaping Alcohol intake: current Alcohol use details: rare Substance use: current Substance use type: marijuana Lack of Transportation: No Lack of Food: Sometimes True Current Housing: I Have Housing Concerned About Future Housing: No Difficulty Paying Gas/Electric Bills: No Difficulty Paying for Meds: No Currently Unemployed: No Education: Associate Degree Difficulty w/ Childcare or Family Care: YES Living arrangements: with family Occupation/Education: occupation Gender identity (if verbalized by the patient): Female Spiritual care concerns: No Exam Narrative: GENERAL: Well-appearing, well-nourished, and in no acute distress. HEAD: Normocephalic, atraumatic. EYES: PERRLA and
== END 2023-02-05 02:05 | disposition home or self-care (01) ==
PROVIDERS: Emergency Provider Emergency Medicine; PCP Internal Medicine
DX: S50.01XA Contusion of right elbow, initial encounter (principal); S30.0XXA Contusion of lower back and pelvis, initial encounter; S50.811A Abrasion of right forearm, initial encounter; S49.91XA Unspecified injury of right shoulder and upper arm, initial encounter; M54.31 Sciatica, right side; K21.9 Gastro-esophageal reflux disease without esophagitis; F41.8 Other specified anxiety disorders; Z87.440 Personal history of urinary (tract) infections; Z87.891 Personal history of nicotine dependence; W10.9XXA Fall (on) (from) unspecified stairs and steps, initial encounter
CPT/HCPCS: 72100; 73060; 73090; 99284; A4565; A9270

== ENCOUNTER 2023-06-13 15:52 | Outpatient (CLI) | payer OTHER, SELFPAY ==
--- NOTE | ~2023-06-13 | XR_ITS ---
AP view of the pelvis and AP and lateral views of the bilateral hips Clinical history: Pain Findings: No acute fracture or dislocation is seen. Osseous alignment is anatomic. Bilateral hip and SI joint spaces are preserved. Soft tissues are unremarkable. Impression: No significant abnormality is seen. Reviewed, dictated and finalized at [facility]. RNATIVE EDUCATION TEACHER Impression: No significant abnormality is seen.
== END 2023-06-13 15:53 ==
PROVIDERS: PCP Internal Medicine; Visit Provider Internal Medicine
DX: M25.551 Pain in right hip (principal); M25.552 Pain in left hip
CPT/HCPCS: 73521

== ENCOUNTER 2024-06-23 09:56 | Day surgery (SDC) | payer OTHER, SELFPAY ==
[2024-06-23] VITALS (9 sets, daily range): BP systolic 107–122; BP diastolic 55–83; PULSE 76–125; RESP 16–20; TEMP 36.2–37.2; O2SAT 96–100
--- NOTE | 2024-06-23 10:30 | ED.ABDPAIN ---
HPI - Abdominal Pain General Chief Complaint: Abdominal Pain Stated Complaint: abd pain Time Seen by Provider: 06/23/24 10:30 Source: patient and family Mode of arrival: ambulatory Limitations: no limitations and dementia History of Present Illness HPI narrative: 39 YEARS OLD WHITE FEMALE CAME WITH HER TO THE ED COMPLAINING OF WAKING UP AT 6:00 A.M. WITH SEVERE DIFFUSE ABDOMINAL PAIN, GENERALIZED ASSOCIATED WITH NAUSEA AND FREQUENT VOMITING. DENIES ANY FEVER OR CHILLS OR DIARRHEA. A LOT OF STRESS LATELY. HISTORY OF IBS, GERD, ANXIETY, DEPRESSION, BORDERLINE BIPOLAR. Related Data Home Medications ?Medication ?Instructions ?Recorded ?Confirmed ?Last Taken ?Type cholecalciferol (vitamin D3) 50 50 mcg PO DAILY 07/07/21 04/02/24 Unknown History mcg (2,000 unit) capsule docusate sodium 100 mg capsule 100 mg PO DAILY 07/07/21 04/02/24 Unknown History (Dulcolax Stool Softener (docusate)) hydroxyzine pamoate 25 mg capsule 25 mg PO TID 07/07/21 04/02/24 Unknown History (Vistaril) vitamin B complex 1 tablet PO DAILY 07/07/21 04/02/24 Unknown History famotidine 40 mg tablet 20 mg PO .At Bedtime 12/08/21 04/02/24 Unknown History kuqbyjzsasvx-Oi-wgev-minerals 18 tablet PO 12/08/21 04/02/24 Unknown History mg-0.4 mg tablet lactobacillus combination no.4 3 3,000 mmu cells PO DAILY 12/07/22 04/02/24 Unknown History billion cell capsule (Probiotic) Aloemaxlax with [place] 360 mg PO 1XD 06/13/23 04/02/24 Unknown History ashwagandha extract 120 mg capsule mg PO 06/13/23 04/02/24 Unknown History lamotrigine 25 mg tablet 50 mg PO DAILY 06/13/23 04/02/24 Unknown History calcium carbonate 600 mg PO DAILY 04/02/24 04/02/24 Unknown History clonazepam 1 mg tablet 1 mg PO BID 04/02/24 04/02/24 Unknown History lubiprostone 8 mcg capsule mcg PO 04/02/24 04/02/24 Unknown History peppermint oil 50 mg 250 mg PO 04/02/24 04/02/24 Unknown History capsule,delayed release Allergies Allergy/AdvReac Type Severity Reaction Status Date / Time amoxicillin Allergy hives Verified 06/23/24 12:43 Latex, Natural Rubber Allergy Hives Verified 06/23/24 12:43 sulfamethoxazole (From Allergy throat Verified 06/23/24 12:43 Bactrim) swelling trimethoprim (From Bactrim) Allergy throat Verified 06/23/24 12:43 swelling metoclopramide (From Reglan) AdvReac Anxiety Verified 06/23/24 12:43 Review of Systems Review of Systems: All systems reviewed & are unremarkable except as noted in HPI and below PMFSH Past Medical History Medical History Depression with anxiety Spinal stenosis Anxiety Nausea & vomiting UTI (urinary tract infection) Chronic UTI's after sex Stomach ulcer GERD (gastroesophageal reflux disease) Anxiety Headache, migraine Allergies Surgical History Surgical History History of dilatation and curettage Family History Family History Mother Diabetes mellitus COPD (chronic obstructive pulmonary disease) Arthrosis Father Hypertension Migraine High cholesterol Grandparent Alzheimers disease Diabetes mellitus Heart disease Grandparent Heart disease Grandparent Diabetes mellitus Arthrosis Sibling Depression Epilepsy Migraine Social History Social History Smoking status: Former smoker Tobacco type: cigarettes and e-cigarettes/vaping Alcohol intake: current Alcohol use details: rare Substance use: current Substance use type: marijuana Do You Feel Safe in your Home?: Yes Lack of Transportation: No Lack of Food: Sometimes True Current Housing: I Have Housing Concerned About Future Housing: No Difficulty Paying Gas/Electric Bills: No Difficulty Paying for Meds: No Currently Unemployed: No Education: Associate Degree Difficulty w/ Childcare or Family Care: YES Living arrangements: with family Occupation/Education: occupation Gender identity (if verbalized by the patient): Female Spiritual care concerns: No Exam Narrative: GENERAL APPEARANCE: WELL-DEVELOPED, WELL-NOURISHED, RESTLESS, HYPERVENTILATING SKIN: NORMAL COLOR HEAD: NORMOCEPHALIC, NONTRAUMATIC EYES: CLEAR CONJUNCTIVA ENT: OROPHARYNX NORMAL, EARS NORMAL, NOSE NORMAL NECK: SUPPLE, NONTENDER CHEST AND RESPIRATORY: AIRWAY PATENT, NO RESPIRATORY DISTRESS, NO ACCESSORY MUSCLE USE HEART: REGULAR RATE/RHYTHM ABDOMEN: SOFT, SEVERE DIFFUSE TENDERNESS WITH LIGHT PALPATION TO ANY PART OF HER ABDOMEN UNABLE TO EVALUATE BOWEL SOUND VASCULAR: NORMAL PERIPHERAL PULSES, NORMAL CAPILLARY REFILL. MUSCULOSKELETAL: NORMAL RANGE OF MOTION, NONTENDER BACK NEUROLOGIC: ALERT AND ORIENTED ?3, PROCESS ENG IS NORMAL TESTED, NO GROSS MOTOR DEFICIT Course Consultations Consultation #1: DR. HAMLIN Date: 06/23/24 Time: 13:41 Vital Signs Vital signs: Vital Signs Temperature 36.2 C L 06/23/24 10:01 Pulse Rate 87 06/23/24 10:01 Respiratory Rate 16 06/23/24 10:01 Blood Pressure 107/64 06/23/24 10:01 Pulse Oximetry 98 06/23/24 10:01 Temperature 36.2 C L 06/23/24 10:01 Pulse Rate 88 06/23/24 12:59 Respiratory Rate 20 06/23/24 12:59 Blood Pressure 107/64 06/23/24 10:01 Pulse Oximetry 100 06/23/24 12:59 MDM - Abdominal Pain MDM Narrative Medical decision making narrative: PATIENT PRESENTS WITH ABDOMINAL PAIN AND FREQUENT VOMITING STARTED FEW HOURS PRIOR TO ARRIVAL VITAL SIGNS ARE STABLE PHYSICAL EXAMINATION SHOWING RESTLESS, ANXIOUS PATIENT, HYPERVENTILATING WITH SEVERE DIFFUSE ABDOMINAL TENDERNESS DIFFERENTIAL DIAGNOSIS INCLUDE ANXIETY LIKE SYMPTOMS, IBS FLARE, GASTRITIS, COLITIS, DIVERTICULITIS, CONSTIPATION, URINARY TRACT INFECTION BLOOD WORKUP TODAY INCLUDES CBC, CMP, LIPASE SHOWED POTASSIUM OF 3.[address] ABDOMEN AND PELVIS WITH IV CONTRAST SHOWED ACUTE APPENDICITIS URINALYSIS SHOWED NO EVIDENCE OF INFECTION ADMIT TO Differential Diagnosis Differential diagnosis: Likely other ( ABOVE) Medical Records Attestation: I reviewed the patient's medical records. Lab Data Attestation: I reviewed the patient's lab results. 06/23/24 11:56 06/23/24 11:56 Labs: Lab Results 06/23/24 06/23/24 06/23/24 Range/Units 11:56 12:06 12:10 WBC 8.9 (4.5-10.0) K/mm3 RBC 4.55 (4.2-5.4) M/mm3 Hgb 13.9 (12.0-15.0) g/dL Hct 40.4 (37.0-47.0) % MCV 88.8 (80-100) fl MCH 30.5 (26-34) pg MCHC 34.4 (32-36) g/dl RDW 12.3 (11.5-14.5) % Plt Count 206 (150-375) k/mm3 MPV 11.1 H (7.4-10.4) fl Immature Gran % (Auto) 0.3 (0-0.5) % Neut % (Auto) 87.9 H (45.5-73.1) % Lymph % (Auto) 8.9 L (18.3-44.2) % Hand % (Auto) 2.7 (2.6-8.5) % Eos % (Auto) 0.0 (0-4.4) % Baso % (Auto) 0.2 (0.2-1.2) % Lymph # (Auto) 0.79 L (0.9-3.2) K/mm3 Hand # (Auto) 0.2 (0.1-0.6) K/mm3 Eos # (Auto) 0.0 (0-0.3) K/mm3 Baso # (Auto) 0.0 (0.0-0.1) K/mm3 Abs Immat Gran (auto) 0.03 (0.00-0.031) K/mm3 Absolute Neuts (auto) 7.8 H (1.3-6.7) K/mm3 Absolute Nucleated RBC 0.000 (0.0-0.012) K/mm3 Nucleated RBC % 0.0 (0.0-0.2) % Sodium 139 (137-145) mmol/L Potassium 3.3 L (3.4-5.0) mmol/L Chloride 103 (98-107) mmol/L Carbon Dioxide 21 L (22-30) mmol/L Anion Gap 15 H (4-12) mmol/L BUN 13 (7-17) mg/dL Creatinine 0.62 L (0.7-1.0) mg/dL Estim Creat Clear Calc 103 ml/min Estimated GFR > 60 (59 - ) Glucose 131 H (65-110) mg/dL Calcium 9.6 (8.4-10.2) mg/dL Total Bilirubin 0.6 (0.2-1.3) mg/dL AST 30 (14-36) U/L ALT 36 H (6-35) U/L Alkaline Phosphatase 81 (38-126) U/L Total Protein 8.0 (6.3-8.2) g/dL Albumin 4.8 (3.5-5.1) g/dL Lipase 69 (23-300) U/L Urine Color Yellow (Yellow) Urine Appearance Turbid H (Clear) Urine pH >=9.0 H (5.0-9.0) Ur Specific [place] 1.019 (1.001-1.035) Urine Protein 2+ H (Negative) mg/dL Urine Glucose (UA) Negative (Negative) mg/dL Urine Ketones Trace H (Negative) mg/dL Ur Blood (Man) Negative (Negative) Urine Nitrate Negative (Negative) Urine Bilirubin Negative (Negative) Urine Urobilinogen 0.2 (<2.0) mg/dL Leukocyte Esterase Rfl Negative (Negative) AGUSTIN/UL Urine RBC 0-2 (0-2) /hpf Urine WBC 0-5 (0-3) /hpf Ur Squamous Epith Cells Moderate (Few) /hpf Urine Bacteria None seen /hpf Urine Casts 0-2 Urine Yeast (Budding) Present H (None) /hpf POC Urine HCG, Qual Negative (Negative) Influenza A (RT-PCR) Negative (Negative) Influenza B (RT-PCR) Negative (Negative) RSV (RT-PCR) Negative (Negative) SARS-CoV-2 RNA (RT-PCR) Negative (Negative) Imaging Data Radiologist's impression: ITS Impressions Abdomen/Pelvis CT 06/23/24 12:42 IMPRESSION: 1. Acute appendicitis. Dr. Walsh discussed these findings with Dr. Noel at 12:45 PM. Critical Care Time Critical Care Time Critical Care Time: No Discharge Plan Discharge Clinical Impression: Acute appendicitis Patient Disposition: Still a Patient Condition: Stable Patient Language: Thai Prescriptions: No Action hydroxyzine pamoate [Vistaril] 25 mg capsule 25 mg PO TID docusate sodium [Dulcolax Stool Softener (dss)] 100 mg capsule 100 mg PO DAILY vitamin B complex Tablet 1 tablet PO DAILY cholecalciferol (vitamin D3) 50 mcg (2,000 unit) capsule 50 mcg PO DAILY trazodone 100 mg tablet 150 mg PO QHS Qty: 30 0RF Rx Instructions: LAST REFILL UNTIL SEEN Probiotic 3 billion cell capsule 3,000 mmu cells PO DAILY Rx Instructions: administer with a meal clonazepam 1 mg tablet 1 mg PO BID lubiprostone 8 mcg capsule PO peppermint oil 50 mg capsule,delayed release(DR/EC) 250 mg PO calcium carbonate 600 mg calcium (1,500 mg) tablet 600 mg PO DAILY famotidine 40 mg tablet 20 mg PO .At Bedtime gzsdboadtbjr-Uh-fucm-minerals 18-0.4 mg tablet PO omeprazole 20 mg capsule,delayed release(DR/EC) 20 mg PO DAILY Qty: 90 1RF dicyclomine 10 mg capsule 10 mg PO QID Qty: 1 0RF lamotrigine 25 mg tablet 50 mg PO DAILY ashwagandha extract 120 mg capsule PO Aloemaxlax with [place] 360 mg PO 1XD ondansetron HCl 4 mg tablet See Rx Instructions .ROUTE .COMPLEX Qty: 20 1RF Dose Instruction: TAKE 1 TABLET BY MOUTH EVERY 8 HOURS NEEDED FOR NAUSEA AND VOMITING Rx Instructions: TAKE 1 TABLET BY MOUTH EVERY 8 HOURS NEEDED FOR NAUSEA AND VOMITING Follow-up/Referrals: Álvaro Colmenares DO [Primary Care Provider] -
[2024-06-23] MEDS: SODIUM CHLORIDE 0.9% IV 1,000 ML 999 ML IV CONT (12:04)
[2024-06-23 12:06] LABS: Basophils Percent Auto 0.2 % (0.2-1.2); Hematocrit 40.4 % (37.0-47.0); Hemoglobin 13.9 g/dL (12.0-15.0); Immature Granulocyte Absolute 0.03 K/mm3 (0.00-0.031); Immature Granulocyte Percent A 0.3 % (0-0.5); Lymphocytes Absolute Auto 0.79 K/mm3 (0.9-3.2); Lymphocytes Percent Auto 8.9 % (18.3-44.2); Mean Corpuscular HGB Conc 34.4 g/dl (32-36); Mean Corpuscular Hemoglobin 30.5 pg (26-34); Mean Corpuscular Volume 88.8 fl (80-100); Mean Platelet Volume 11.1 fl (7.4-10.4); Monocytes Absolute Auto 0.2 K/mm3 (0.1-0.6); Monocytes Percent Auto 2.7 % (2.6-8.5); Neutrophils Absolute Auto 7.8 K/mm3 (1.3-6.7); Neutrophils Percent Auto 87.9 % (45.5-73.1); Platelet Count Result 206 k/mm3 (150-375); Red Blood Count 4.55 M/mm3 (4.2-5.4); Red Cell Distribution Width 12.3 % (11.5-14.5); White Blood Count 8.9 K/mm3 (4.5-10.0)
[2024-06-23 12:14] LABS: BEDSIDEPREGUCG Negative (Negative)
[2024-06-23 12:15] LABS: Alanine Aminotransferase 36 U/L (6-35); Albumin Level 4.8 g/dL (3.5-5.1); Alkaline Phosphatase 81 U/L (38-126); Anion Gap 15 mmol/L (4-12); Aspartate Amino Transferase 30 U/L (14-36); Bilirubin,Total 0.6 mg/dL (0.2-1.3); Blood Urea Nitrogen 13 mg/dL (7-17); Calcium 9.6 mg/dL (8.4-10.2); Carbon Dioxide 21 mmol/L (22-30); Chloride 103 mmol/L (98-107); Estimated CRCL calculation 103 ml/min; Estimated Glomerular Filt Rate > 60; Glucose 131 mg/dL (65-110); Lipase 69 U/L (23-300); Potassium 3.3 mmol/L (3.4-5.0); Sodium 139 mmol/L (137-145)
[2024-06-23 12:43] LABS: Add Urine Microscopic? YES; Appearance Urine Turbid (Clear); Bacteria Urine None Seen /hpf; Bilirubin Urine Negative (Negative); Blood Urine Negative (Negative); Budding Yeast Urine Present /hpf; Color Urine Yellow (Yellow); Glucose Urine UA Negative (Negative); Ketones Urine Trace mg/dL (Negative); Leukocyte Esterase Ur Negative LEU/UL (Negative); Nitrate Urine Negative (Negative); Non Pathogenic Casts 0-2; Protein Urine 2+ mg/dL (Negative); RBC Urine 0-2 /hpf (0-2); Specific Grav Ur 1.019 (1.001-1.035); Squamous Epithelial Cell Urine Moderate /hpf (Few); Urobilinogen Urine 0.2 mg/dL (<2.0); WBC Urine 0-5 /hpf (0-3); pH Urine >=9.0 (5.0-9.0)
[2024-06-23] MEDS: diphenhydrAMINE HCl INJ 50 MG/ML VIAL IV PUSH (12:44)
[2024-06-23] MEDS: HYDROmorphone HCL INJ (*CRX) 1 MG/ML SYR 0.5 MG IV PUSH ×2 (12:44→13:28)
[2024-06-23 12:54] LABS: Influenza A QL RT-PCR Negative (Negative); Influenza B QL RT-PCR Negative (Negative); RSV RNA, RT-PCR Negative (Negative); SARS-CoV-2 RNA PCR Negative (Negative)
[2024-06-23] MEDS: ERTAPENEM 1 GM/NS 50 ML 1 GM/50 ML BAG IVPB (13:19)
--- NOTE | 2024-06-23 13:19 | PC.NURSE ---
EDP Dr. Noel states no blood cultures needed.
[2024-06-23] MEDS: ONDANSETRON INJ 4 MG/2 ML VIAL IV PUSH ×2 (13:29→19:17)
--- NOTE | 2024-06-23 14:17 | PC.NURSE ---
Pt c/o persistent nausea and pain. Pt also denying more dilaudid pain medicine d/t not liking the feeling. Pt requesting something for anxiety. made aware
--- NOTE | 2024-06-23 16:34 | W.PM.PROC2 ---
Procedure Note - Detailed Date of Procedure 06/23/24 Pre-op Diagnosis Acute appendicitis Post-op Diagnosis Same Procedure Performed Laparoscopic appendectomy Surgeon Leander Hernandez MD Revenue Collector Lemuel MCCURDY Anesthesia General and Local Indications Patient awakened with severe abdominal pain this morning that was pretty much diffuse. The pain was unrelenting and she came to the emergency room. She had diffuse tenderness but a white count that was still within the normal range. CT scan however showed acute appendicitis. She is taken to surgery now for laparoscopic appendectomy Findings The distal half of the appendix was acutely inflamed consistent with appendicitis. Although I could not see or feel 1, I suspect and appendicoliths in mid a appendiceal lumen was the cause. The proximal appendix was relatively normal. No other significant findings were noted. There was no evidence of rupture or abscess Description of Procedure Patient was taken to surgery and induced into general anesthesia. The abdomen is prepped and draped. Trocars were placed in usual fashion using CUPR optical trocars and a 5 mm camera. With the trocars in place, the patient was placed in Trendelenburg with the right-side elevated. The appendix was located without difficulty. Traction on the appendix was carried out inflammatory adhesions were released. We then exposed the mesoappendix and, using cautery, carefully divided it. The appendiceal artery was thoroughly cauterized and divided. Eventually the base of the appendix was skeletonized. A Vicryl endoloop was then used to ligate the appendix at its base. Appendix was then amputated just above the ligature. The mucosa of the appendiceal stump was cauterized. The appendix was immediately placed in an Endo-Catch bag and retrieved from the 10/11 left lower quadrant trocar site. We replaced the 10 11 trocar reviewed the areas of dissection and the appendiceal stump. All looked good. There was no need for additional irrigation. We then evacuated CO2 and removed the trocar sleeves. Skin wounds were closed with subcuticular 4-0 Monocryl skin suture. The wounds were dressed with Exofin surgical adhesive. Patient was awakened and taken to recovery in good condition. Sponge and needle counts were correct x2. Estimated Blood Loss -10 Drains No Packing No Pathology Yes (Appendix) Complications None Condition Stable Disposition PACU [facility] Billing Surgery - Charge Forward: Surgery Billing (Laparoscopic appendectomy)
--- NOTE | 2024-06-23 16:35 | PM.SD2 ---
Same Day Admit/Disch: HPI History of Present Illness Chief complaint: abd pain Narrative: Jody Iyer is a 39 year old female who awakened from sleep early this morning about fiber 6:00 a.m. with severe pain in an arch distribution from the left lower quadrant up to the hypogastrium and down to the right lower quadrant. She then went on to experience nausea and vomiting. This persisted and she came to the emergency room in excruciating pain. She received 3 different doses of Dilaudid in the emergency room without immediate relief. Eventually she did become comfortable. Her white blood cell count was in the normal range. She had diffuse abdominal tenderness. CT scan of the abdomen and pelvis showed a 12 mm dilated appendix with periappendiceal inflammatory stranding consistent with acute appendicitis. After discussion, she is taken to surgery now for laparoscopic appendectomy. [facility] Past Medical History Medical History Depression with anxiety Spinal stenosis Anxiety Nausea & vomiting UTI (urinary tract infection) Chronic UTI's after sex Stomach ulcer GERD (gastroesophageal reflux disease) Anxiety Headache, migraine Allergies Surgical History Surgical History History of dilatation and curettage Family History Family History Mother Diabetes mellitus COPD (chronic obstructive pulmonary disease) Arthrosis Father Hypertension Migraine High cholesterol Grandparent Alzheimers disease Diabetes mellitus Heart disease Grandparent Heart disease Grandparent Diabetes mellitus Arthrosis Sibling Depression Epilepsy Migraine Social History Social History Smoking status: Former smoker Tobacco type: cigarettes and e-cigarettes/vaping Alcohol intake: current Alcohol use details: rare Substance use: current Substance use type: marijuana Do You Feel Safe in your Home?: Yes Lack of Transportation: No Lack of Food: Sometimes True Current Housing: I Have Housing Concerned About Future Housing: No Difficulty Paying Gas/Electric Bills: No Difficulty Paying for Meds: No Currently Unemployed: No Education: Associate Degree Difficulty w/ Childcare or Family Care: YES Living arrangements: with family Occupation/Education: occupation Gender identity (if verbalized by the patient): Female Spiritual care concerns: No Same Day Admit/Disch: Med Pre-admit Medications Home Medications ?Medication ?Instructions ?Recorded ?Confirmed ?Type ondansetron HCl 4 mg tablet See Rx Instructions .Route 02/16/21 04/02/24 Rx .COMPLEX #20 tabs cholecalciferol (vitamin D3) 50 50 mcg PO DAILY 07/07/21 04/02/24 History mcg (2,000 unit) capsule docusate sodium 100 mg capsule 100 mg PO DAILY 07/07/21 04/02/24 History (Dulcolax Stool Softener (docusate)) hydroxyzine pamoate 25 mg capsule 25 mg PO TID 07/07/21 04/02/24 History (Vistaril) vitamin B complex 1 tablet PO DAILY 07/07/21 04/02/24 History famotidine 40 mg tablet 20 mg PO .At Bedtime 12/08/21 04/02/24 History bapyobopwzje-Cv-wygd-minerals 18 tablet PO 12/08/21 04/02/24 History mg-0.4 mg tablet omeprazole 20 mg capsule,delayed 20 mg PO DAILY #90 caps 12/08/21 04/02/24 Rx release dicyclomine 10 mg capsule 10 mg PO QID #1 cap 01/19/22 04/02/24 Rx lactobacillus combination no.4 3 3,000 mmu cells PO DAILY 12/07/22 04/02/24 History billion cell capsule (Probiotic) trazodone 100 mg tablet 150 mg (1.5 x 100 mg) PO QHS #30 12/07/22 04/02/24 Rx tabs Aloemaxlax with [place] 360 mg PO 1XD 06/13/23 04/02/24 History ashwagandha extract 120 mg capsule mg PO 06/13/23 04/02/24 History lamotrigine 25 mg tablet 50 mg PO DAILY 06/13/23 04/02/24 History calcium carbonate 600 mg PO DAILY 04/02/24 04/02/24 History clonazepam 1 mg tablet 1 mg PO BID 04/02/24 04/02/24 History lubiprostone 8 mcg capsule mcg PO 04/02/24 04/02/24 History peppermint oil 50 mg 250 mg PO 04/02/24 04/02/24 History capsule,delayed release ketorolac 10 mg tablet 10 mg PO Q6H 4 days #16 tabs 06/23/24 Rx oxycodone-acetaminophen 5 mg-325 0.5 - 1 tablet PO Q4H PRN pain #10 06/23/24 Rx mg tablet (Percocet) tabs Review of Systems Review of Systems All systems reviewed & are unremarkable except as noted in HPI and below (HPI) Exam Const: General: comfortable, no acute distress, alert, awake, tired appearing and average body habitus Orientation/consciousness: patient oriented x3 HENMT: Head: normocephalic and atraumatic Mouth: Yes Normal oral and palatal mucosa present Eyes: Conjunctivae: conjunctivae normal Pupils: Equal, round and reactive pupils present EOM: EOMs intact bilaterally Neck: Neck: normal visual inspection, no lymphadenopathy and nontender Resp: Effort & Inspection: normal respiratory effort Auscultation: clear to auscultation bilaterally Cardio: Rate: regular rate Rhythm: regular rhythm Heart sounds: no gallops, no murmurs and no rubs GI: Inspection: normal to inspection and non-distended GI Palp: Yes Soft to palpation, Yes Tenderness to palpation present (GI) (Bilateral lower quadrants, right greater than left), No Hepatomegaly present, No Splenomegaly present, No Hernia present and No Palpable mass present Skin: Lesions: no lesions Rashes: no rashes Neuro: General: no focal motor deficits and CN's II-XI intact bilaterally Cranial nerves: Yes Equal, round and reactive pupils present, Yes Bilaterally intact EOM present, Yes facial symmetry and Yes Midline tongue present Speech: normal speech Motor exam (neuro): 5/5 motor strength present throughout and Motor abnormalities not present Extrem: General: no clubbing, cyanosis or edema and edema Psych: Affect: normal affect Thought process: Normal thought process present Insight: Good insight present (Psych) DS: Data Data Completed and Pending Labs on day of discharge: Labs from last 24 hours 06/23/24 06/23/24 06/23/24 12:10 12:06 11:56 WBC 8.9 RBC 4.55 Hgb 13.9 Hct 40.4 MCV 88.8 MCH 30.5 MCHC 34.4 RDW 12.3 Plt Count 206 MPV 11.1 H Immature Gran % (Auto) 0.3 Neut % (Auto) 87.9 H Lymph % (Auto) 8.9 L Gordon % (Auto) 2.7 Eos % (Auto) 0.0 Baso % (Auto) 0.2 Lymph # (Auto) 0.79 L Gordon # (Auto) 0.2 Eos # (Auto) 0.0 Baso # (Auto) 0.0 Abs Immat Gran (auto) 0.03 Absolute Neuts (auto) 7.8 H Absolute Nucleated RBC 0.000 Nucleated RBC % 0.0 Sodium 139 Potassium 3.3 L Chloride 103 Carbon Dioxide 21 L Anion Gap 15 H BUN 13 Creatinine 0.62 L Estim Creat Clear Calc 103 Estimated GFR > 60 Glucose 131 H Calcium 9.6 Total Bilirubin 0.6 AST 30 ALT 36 H Alkaline Phosphatase 81 Total Protein 8.0 Albumin 4.8 Lipase 69 Urine Color Yellow Urine Appearance Turbid H Urine pH >=9.0 H Ur Specific [place] 1.019 Urine Protein 2+ H Urine Glucose (UA) Negative Urine Ketones Trace H Ur Blood (Man) Negative Urine Nitrate Negative Urine Bilirubin Negative Urine Urobilinogen 0.2 Leukocyte Esterase Rfl Negative Urine RBC 0-2 Urine WBC 0-5 Ur Squamous Epith Cells Moderate Urine Bacteria None seen Urine Casts 0-2 Urine Yeast (Budding) Present H POC Urine HCG, Qual Negative Influenza A (RT-PCR) Negative Influenza B (RT-PCR) Negative RSV (RT-PCR) Negative SARS-CoV-2 RNA (RT-PCR) Negative Imaging Attestation: I personally reviewed and interpreted this imaging study as follows: (CT scan abdomen and pelvis) My impression: Acute appendicitis Radiologist's impression: Same DS: Summary Time Spent with Patient Time attestation: Total time spent providing and/or coordinating discharge services: DS: Admitting Diagnosis Discharge Date 06/23/2024 Admitting Diagnosis Acute appendicitis-plan to proceed with laparoscopic appendectomy under general anesthesia. I discussed the procedure with the patient and her . I discussed the alternatives, particularly medical treatment with just antibiotics. She prefers to go ahead with the surgery. I discussed the surgery, the usual recovery time and typical length of the surgery. I discussed going home later today is often suitable. All questions were answered, she agrees to go ahead. DS: Discharge Diagnosis Discharge Diagnosis (1) Acute appendicitis: Qualifiers: Acute appendicitis type: with localized peritonitis Appendicitis gangrene presence: without gangrene Appendicitis perforation presence: without perforation Appendicitis abscess presence: without abscess Qualified Code(s): K35.30 - Acute appendicitis with localized peritonitis, without perforation or gangrene Code(s): K35.80 - Unspecified acute appendicitis Status: Acute Assessment and Plan: Patient had laparoscopic appendectomy per Dr. Hernandez 06/23/2024 Discharge Plan Discharge Patient Disposition: Home, Self-Care Discharge Instructions: 1. May shower the day after surgery over incisions. 2. Call office for: -Wound increasingly painful or bleeding -Vomiting -Fever of greater than 101 degrees 3. Expect some blood on dressing and old blood on skin. 4. If no bowel movement for three days, take 1 oz. (30 ml) Milk of Magnesia, if no results, take Fleets enema. 5. No heavy lifting > 15-20 pounds for 2 weeks. 6. No driving for 3 days or while taking narcotic pain medications. 7. Up walking 10-30 minutes three times per day. 8. Resume previous home medications. 9. Follow-up 10-14 days in office for wound check or as previously scheduled. 10. Oral pain medications prescription to be sent home with patient. 11. NUTRITION: Start out by drinking fluids and increase your diet as tolerated. If you experience nausea, try dry toast, crackers, and 7-UP. If nausea or vomiting persists, contact your surgeon?s office. Patient Language: Divehi Stand Alone Forms: General Discharge Instructions Follow-up/Referrals: Leander Hernandez MD [Physician] - 2 Weeks Discharge Medications: New oxycodone-acetaminophen [Percocet] 5-325 mg tablet 0.5 - 1 tablet PO Q4H PRN (Reason: pain) Qty: 10 0RF ketorolac 10 mg tablet 10 mg PO Q6H 4 Days Qty: 16 0RF Continued hydroxyzine pamoate [Vistaril] 25 mg capsule 25 mg PO TID docusate sodium [Dulcolax Stool Softener (dss)] 100 mg capsule 100 mg PO DAILY vitamin B complex Tablet 1 tablet PO DAILY cholecalciferol (vitamin D3) 50 mcg (2,000 unit) capsule 50 mcg PO DAILY trazodone 100 mg tablet 150 mg PO QHS Qty: 30 0RF Rx Instructions: LAST REFILL UNTIL SEEN Probiotic 3 billion cell capsule 3,000 mmu cells PO DAILY Rx Instructions: administer with a meal clonazepam 1 mg tablet 1 mg PO BID lubiprostone 8 mcg capsule PO peppermint oil 50 mg capsule,delayed release(DR/EC) 250 mg PO calcium carbonate 600 mg calcium (1,500 mg) tablet 600 mg PO DAILY famotidine 40 mg tablet 20 mg PO .At Bedtime soxdinnmdrga-Pv-eeus-minerals 18-0.4 mg tablet PO omeprazole 20 mg capsule,delayed release(DR/EC) 20 mg PO DAILY Qty: 90 1RF dicyclomine 10 mg capsule 10 mg PO QID Qty: 1 0RF lamotrigine 25 mg tablet 50 mg PO DAILY ashwagandha extract 120 mg capsule PO Aloemaxlax with [place] 360 mg PO 1XD ondansetron HCl 4 mg tablet See Rx Instructions .ROUTE .COMPLEX Qty: 20 1RF Dose Instruction: TAKE 1 TABLET BY MOUTH EVERY 8 HOURS NEEDED FOR NAUSEA AND VOMITING Rx Instructions: TAKE 1 TABLET BY MOUTH EVERY 8 HOURS NEEDED FOR NAUSEA AND VOMITING
--- NOTE | 2024-06-23 16:46 | WPDHPUPDATE1 ---
History and Physical Update Update Date/Time: 06/23/24 16:46 History and Physical has been reviewed, including an updated exam of the patient. There are NO changes in the patient's condition. Risks, benefits, and alternatives have been discussed and questions answered. Patient agrees to proceed with procedure.
--- NOTE | 2024-06-23 17:01 | WPDANESEPPF ---
Anes - Initial Pre Proc Eval Procedure: Operation Date: 06/23/24 17:00 Proposed Procedures p Laparoscopic Appendectomy - Leander Hernandez MD Date/Time: 06/23/24 17:01 Surgeon: Leander Hernandez MD Pre Op Diagnosis: abd pain Patient Data Age: 39 Gender: F Height: 1.63 m Weight: 73 kg Last Vital Signs Temp 99 F 06/23/24 15:52 Pulse 76 06/23/24 15:52 Resp 16 06/23/24 15:52 BP 112/55 L 06/23/24 15:52 Pulse Ox 97 06/23/24 15:52 Allergies Allergy/AdvReac Type Severity Reaction Status Date / Time amoxicillin Allergy hives Verified 06/23/24 12:43 Latex, Natural Rubber Allergy Hives Verified 06/23/24 12:43 lorazepam (From Ativan) Allergy Nausea and Verified 06/23/24 16:33 Vomiting sulfamethoxazole (From Allergy throat Verified 06/23/24 12:43 Bactrim) swelling trimethoprim (From Bactrim) Allergy throat Verified 06/23/24 12:43 swelling metoclopramide (From Reglan) AdvReac Anxiety Verified 06/23/24 12:43 Home Medications ?Medication ?Instructions ?Recorded ?Confirmed ?Type ondansetron HCl 4 mg tablet See Rx Instructions .Route 02/16/21 04/02/24 Rx .COMPLEX #20 tabs cholecalciferol (vitamin D3) 50 50 mcg PO DAILY 07/07/21 04/02/24 History mcg (2,000 unit) capsule docusate sodium 100 mg capsule 100 mg PO DAILY 07/07/21 04/02/24 History (Dulcolax Stool Softener (docusate)) hydroxyzine pamoate 25 mg capsule 25 mg PO TID 07/07/21 04/02/24 History (Vistaril) vitamin B complex 1 tablet PO DAILY 07/07/21 04/02/24 History famotidine 40 mg tablet 20 mg PO .At Bedtime 12/08/21 04/02/24 History ksozlhmousiy-Wf-jjnd-minerals 18 tablet PO 12/08/21 04/02/24 History mg-0.4 mg tablet omeprazole 20 mg capsule,delayed 20 mg PO DAILY #90 caps 12/08/21 04/02/24 Rx release dicyclomine 10 mg capsule 10 mg PO QID #1 cap 01/19/22 04/02/24 Rx lactobacillus combination no.4 3 3,000 mmu cells PO DAILY 12/07/22 04/02/24 History billion cell capsule (Probiotic) trazodone 100 mg tablet 150 mg (1.5 x 100 mg) PO QHS #30 12/07/22 04/02/24 Rx tabs Aloemaxlax with [place] 360 mg PO 1XD 06/13/23 04/02/24 History ashwagandha extract 120 mg capsule mg PO 06/13/23 04/02/24 History lamotrigine 25 mg tablet 50 mg PO DAILY 06/13/23 04/02/24 History calcium carbonate 600 mg PO DAILY 04/02/24 04/02/24 History clonazepam 1 mg tablet 1 mg PO BID 04/02/24 04/02/24 History lubiprostone 8 mcg capsule mcg PO 04/02/24 04/02/24 History peppermint oil 50 mg 250 mg PO 04/02/24 04/02/24 History capsule,delayed release Laboratory Tests 06/23/24 06/23/24 06/23/24 11:56 12:06 12:10 WBC 8.9 K/mm3 (4.5-10.0) RBC 4.55 M/mm3 (4.2-5.4) Hgb 13.9 g/dL (12.0-15.0) Hct 40.4 % (37.0-47.0) MCV 88.8 fl (80-100) MCH 30.5 pg (26-34) MCHC 34.4 g/dl (32-36) RDW 12.3 % (11.5-14.5) Plt Count 206 k/mm3 (150-375) MPV 11.1 H fl (7.4-10.4) Immature Gran % (Auto) 0.3 % (0-0.5) Neut % (Auto) 87.9 H % (45.5-73.1) Lymph % (Auto) 8.9 L % (18.3-44.2) [place] % (Auto) 2.7 % (2.6-8.5) Eos % (Auto) 0.0 % (0-4.4) Baso % (Auto) 0.2 % (0.2-1.2) Lymph # (Auto) 0.79 L K/mm3 (0.9-3.2) [place] # (Auto) 0.2 K/mm3 (0.1-0.6) Eos # (Auto) 0.0 K/mm3 (0-0.3) Baso # (Auto) 0.0 K/mm3 (0.0-0.1) Abs Immat Gran (auto) 0.03 K/mm3 (0.00-0.031) Absolute Neuts (auto) 7.8 H K/mm3 (1.3-6.7) Absolute Nucleated RBC 0.000 K/mm3 (0.0-0.012) Nucleated RBC % 0.0 % (0.0-0.2) Sodium 139 mmol/L (137-145) Potassium 3.3 L mmol/L (3.4-5.0) Chloride 103 mmol/L (98-107) Carbon Dioxide 21 L mmol/L (22-30) Anion Gap 15 H mmol/L (4-12) BUN 13 mg/dL (7-17) Creatinine 0.62 L mg/dL (0.7-1.0) Estim Creat Clear Calc 103 ml/min Estimated GFR > 60 (59 - ) Glucose 131 H mg/dL (65-110) Calcium 9.6 mg/dL (8.4-10.2) Total Bilirubin 0.6 mg/dL (0.2-1.3) AST 30 U/L (14-36) ALT 36 H U/L (6-35) Alkaline Phosphatase 81 U/L (38-126) Total Protein 8.0 g/dL (6.3-8.2) Albumin 4.8 g/dL (3.5-5.1) Lipase 69 U/L (23-300) Urine Color Yellow (Yellow) Urine Appearance Turbid H (Clear) Urine pH >=9.0 H (5.0-9.0) Ur Specific [place] 1.019 (1.001-1.035) Urine Protein 2+ H mg/dL (Negative) Urine Glucose (UA) Negative mg/dL (Negative) Urine Ketones Trace H mg/dL (Negative) Ur Blood (Man) Negative (Negative) Urine Nitrate Negative (Negative) Urine Bilirubin Negative (Negative) Urine Urobilinogen 0.2 mg/dL (<2.0) Leukocyte Esterase Rfl Negative AGUSTIN/UL (Negative) Urine RBC 0-2 /hpf (0-2) Urine WBC 0-5 /hpf (0-3) Ur Squamous Epith Cells Moderate /hpf (Few) Urine Bacteria None seen /hpf Urine Casts 0-2 Urine Yeast (Budding) Present H /hpf (None) POC Urine HCG, Qual Negative (Negative) Influenza A (RT-PCR) Negative (Negative) Influenza B (RT-PCR) Negative (Negative) RSV (RT-PCR) Negative (Negative) SARS-CoV-2 RNA (RT-PCR) Negative (Negative) Patient hx anesthesia problems: none and post op nausea/vomiting Family hx anesthesia problems: none Results Review: All pre-operative results and documents have been reviewed as part of the pre-operative evaluation. [facility] Past Medical History Medical History Depression with anxiety Spinal stenosis Anxiety Nausea & vomiting UTI (urinary tract infection) Chronic UTI's after sex Stomach ulcer GERD (gastroesophageal reflux disease) Anxiety Headache, migraine Allergies Surgical History Surgical History History of dilatation and curettage Family History Family History Mother Diabetes mellitus COPD (chronic obstructive pulmonary disease) Arthrosis Father Hypertension Migraine High cholesterol Grandparent Alzheimers disease Diabetes mellitus Heart disease Grandparent Heart disease Grandparent Diabetes mellitus Arthrosis Sibling Depression Epilepsy Migraine Social History Social History Smoking status: Former smoker Tobacco type: cigarettes and e-cigarettes/vaping Alcohol intake: current Alcohol use details: rare Substance use: current Substance use type: marijuana Do You Feel Safe in your Home?: Yes Lack of Transportation: No Lack of Food: Sometimes True Current Housing: I Have Housing Concerned About Future Housing: No Difficulty Paying Gas/Electric Bills: No Difficulty Paying for Meds: No Currently Unemployed: No Education: Associate Degree Difficulty w/ Childcare or Family Care: YES Living arrangements: with family Occupation/Education: occupation Gender identity (if verbalized by the patient): Female Spiritual care concerns: No Anes - Eval Final PreProcedure Day of Procedure 06/23/24 17:01 Patient weight: overweight Lungs: normal air movement Airway: Mallampati scale class II and special considerations (Missing several teeth on the lower aspect. ) Neurological: alert and oriented Last oral intake: >/= 8 hours ASA classification: III Emergent: no Anesthetic plan: proceed Anesthesia type and monitoring: general ETT and standard monitoring Results Review: All pre-operative results and documents have been reviewed as part of the pre-operative evaluation. Hx of depression/anxiety, palpitations, chr pain disorder, now w acute appendicitis. Informed Consent: The patient's anesthetic plan and its attendant risks and benefits were discussed with the patient/family/POA. Questions were solicited and answers provided to the satisfaction of the patient/family/POA.
[2024-06-23] MEDS: BUPIVACAINE/EPINEPHRINE 0.5% 50 ML VIAL 20 ML INFILTRATE (17:38)
[2024-06-23] MEDS: LACTATED RINGERS 1,000 ML 30 ML IV CONT (18:07)
[2024-06-23] MEDS: oxyCODONE HCL (*CRX) 5 MG TAB IR PO (19:16)
== END 2024-06-23 20:00 | disposition home or self-care (01) ==
LOC: ANHED 15:01 → ANHSURGERY 15:50
PROVIDERS: Emergency Provider Emergency Medicine; PCP Internal Medicine; Visit Provider Surgery
PROC: 0DTJ4ZZ Resection of Appendix, Percutaneous Endoscopic Approach (ICD-10-PCS; CPT 44970; principal; 2024-06-23 17:00)
DX: K35.80 Unspecified acute appendicitis (principal); F12.90 Cannabis use, unspecified, uncomplicated; Z20.822 Contact with and (suspected) exposure to COVID-19; Z87.891 Personal history of nicotine dependence
CPT/HCPCS: 44970; 36415; 74177; 80053; 81001; 81025; 83690; 85025; 87637; 88304; 96361; 96365; 96375; 96376; 99285; A9270; J1100; J1171; J1200; J1335; J2003; J2250; J2405; J2704; J3010; J7030; J7120; Q9967

== ENCOUNTER 2024-08-27 13:37 | Emergency (ER) | payer OTHER, MEDICAID, SELFPAY ==
[2024-08-27 13:53] VITALS: BP 117/73; PULSE 70; RESP 20; TEMP 37.2; O2SAT 99
--- NOTE | 2024-08-27 14:13 | ED.ABDPAIN ---
HPI - Abdominal Pain General Chief Complaint: Urogenital-Female Stated Complaint: Uti Symptoms Time Seen by Provider: 08/27/24 14:00 Source: patient and RN notes reviewed Mode of arrival: ambulatory Limitations: no limitations History of Present Illness HPI narrative: 39-year-old female presents Express Care complaining abdominal pain and urinary symptoms for 2 days. Patient reports burning with urination, incontinence, and lower abdominal pain. Patient said she took an azo. Patient says the pain is so excruciating her lower abdomen that she has became incontinent of urine. Patient denies any back pain, nausea, chills, nausea vomiting, diarrhea. Patient denies any vaginal discharge or vaginal bleeding. Patient recently had an appendectomy back in June. Patient rates her abdominal pain a 10/10 and describes as a sharp and stabbing sensation to her lower abdomen. Related Data Home Medications ?Medication ?Instructions ?Recorded ?Confirmed ?Last Taken ?Type cholecalciferol (vitamin D3) 50 50 mcg PO DAILY 07/07/21 08/27/24 Unknown History mcg (2,000 unit) capsule docusate sodium 100 mg capsule 100 mg PO DAILY 07/07/21 08/27/24 Unknown History (Dulcolax Stool Softener (docusate)) hydroxyzine pamoate 25 mg capsule 25 mg PO TID 07/07/21 08/27/24 Unknown History (Vistaril) vitamin B complex 1 tablet PO DAILY 07/07/21 08/27/24 Unknown History famotidine 40 mg tablet 20 mg PO .At Bedtime 12/08/21 08/27/24 Unknown History gmxkcgndagrf-Ca-kyep-minerals 18 1 tablet PO DAILY 12/08/21 08/27/24 Unknown History mg-0.4 mg tablet lactobacillus combination no.4 3 3,000 mmu cells PO DAILY 12/07/22 08/27/24 Unknown History billion cell capsule (Probiotic) lamotrigine 25 mg tablet 50 mg PO DAILY 06/13/23 08/27/24 Unknown History calcium carbonate 600 mg PO DAILY 04/02/24 08/27/24 Unknown History clonazepam 1 mg tablet 1 mg PO BID 04/02/24 08/27/24 Unknown History lubiprostone 8 mcg capsule 8 mcg PO BID 04/02/24 08/27/24 Unknown History peppermint oil 50 mg 250 mg PO DAILY 04/02/24 08/27/24 Unknown History capsule,delayed release Allergies Allergy/AdvReac Type Severity Reaction Status Date / Time amoxicillin Allergy hives Verified 08/27/24 13:51 Latex, Natural Rubber Allergy Hives Verified 08/27/24 13:51 lorazepam (From Ativan) Allergy Nausea and Verified 08/27/24 13:51 Vomiting sulfamethoxazole (From Allergy throat Verified 08/27/24 13:51 Bactrim) swelling trimethoprim (From Bactrim) Allergy throat Verified 08/27/24 13:51 swelling metoclopramide (From Reglan) AdvReac Anxiety Verified 08/27/24 13:51 Review of Systems Review of Systems: CONSTITUTIONAL: Denies fever, chills, or sweats. EYES: Denies visual changes, redness, or discharge. ENT: Denies rhinorrhea, congestion, sore throat, or otalgia. CARDIOVASCULAR: Denies chest pain, palpitations, or edema. RESPIRATORY: Denies cough or dyspnea. GASTROINTESTINAL: Positive for abdominal pain. Negative for nausea, vomiting, or diarrhea. GENITOURINARY: Positive for dysuria and incontinence. Negative for hematuria. SKIN: Denies rash or itching. MUSCULOSKELETAL: Denies back pain, joint pain, or myalgia. NEUROLOGIC: Denies headache, numbness, or weakness. PSYCHIATRIC: Denies anxiety or depression. All other systems reviewed are negative, except as documented in HPI. [facility] Past Medical History Medical History Depression with anxiety Spinal stenosis Anxiety Nausea & vomiting UTI (urinary tract infection) Chronic UTI's after sex Stomach ulcer GERD (gastroesophageal reflux disease) Anxiety Headache, migraine Allergies Surgical History Surgical History History of dilatation and curettage Family History Family History Mother Diabetes mellitus COPD (chronic obstructive pulmonary disease) Arthrosis Father Hypertension Migraine High cholesterol Grandparent Alzheimers disease Diabetes mellitus Heart disease Grandparent Heart disease Grandparent Diabetes mellitus Arthrosis Sibling Depression Epilepsy Migraine Social History Social History Smoking status: Former smoker Tobacco type: cigarettes and e-cigarettes/vaping Alcohol intake: current Alcohol use details: rare Substance use: current Substance use type: marijuana Do You Feel Safe in your Home?: Yes Lack of Transportation: No Lack of Food: Sometimes True Current Housing: I Have Housing Concerned About Future Housing: No Difficulty Paying Gas/Electric Bills: No Difficulty Paying for Meds: No Currently Unemployed: No Education: Associate Degree Difficulty w/ Childcare or Family Care: YES Living arrangements: with family Occupation/Education: occupation Gender identity (if verbalized by the patient): Female Spiritual care concerns: No Comments At the time of my signature, I reviewed and agree with the nursing past medical, surgical, social, and family history. There is no relevant family history pertinent to the patient complaint. Exam Narrative: GENERAL: This is a well-nourished, well-developed adult, in no apparent distress. They are non ill-appearing, nontoxic appearing. Patient appears to be in pain. HEAD: normocephalic, atraumatic. EYES: Sclera clear/white. Conjunctiva normal. Vision is grossly intact. Extraocular movements intact EARS: External ears normal Hearing grossly intact. NOSE: External nose normal THROAT: Mucous membranes moist NECK: Neck supple, non-tender without lymphadenopathy, masses or thyromegaly. Normal range of motion. CARDIOVASCULAR: Regular rate and rhythm without murmurs, gallops, or rubs. RESPIRATORY: Clear to auscultation. Breath sounds equal bilaterally. No wheezes, rales, or rhonchi. GASTROINTESTINAL: Abdomen soft, tenderness to palpation to the lower abdomen, nondistended. Bowel sounds are active. Patient is guarding her abdomen. Previous scars on patient's abdomen consistent with a laparoscopic appendectomy. Scars are healing well. SKIN: warm, Dry, intact with no suspicious lesions or rash, good texture and turgor. NEURO: awake, alert, and oriented to person, place and time. There were no obvious focal neurologic abnormalities. EXTREMITIES: No joint tenderness, effusion, or edema noted. BACK: Nontender without deformity. No CVA tenderness. Course Course Emergency Course: Portions of this record may have been created with voice recognition software Level of Care: Express Care Visit Vital Signs Vital signs: Vital Signs Temperature 98.9 F 08/27/24 13:53 Pulse Rate 70 08/27/24 13:53 Respiratory Rate 20 08/27/24 13:53 Blood Pressure 117/73 08/27/24 13:53 Pulse Oximetry 99 08/27/24 13:53 Oxygen Delivery Room Air 08/27/24 13:53 Temperature 98.9 F 08/27/24 13:53 Pulse Rate 70 08/27/24 13:53 Respiratory Rate 20 08/27/24 13:53 Blood Pressure 117/73 08/27/24 13:53 Pulse Oximetry 99 08/27/24 13:53 Oxygen Delivery Room Air 08/27/24 13:53 Reviewed Transfer Transfered to: [facility] Transportation: Other (Private vehicle) Transfer rationale: Guarded abdomen, severe abdominal pain, higher level care Accepting physician: Williams MDM - Abdominal Pain MDM Narrative Medical decision making narrative: Unable to perform urine dipstick because patient took an Azo tablets that may alter the results of her urine. Urine cultures pending. Given patient's exam findings and symptoms it is recommended the patient seek a higher level care and further evaluation for her abdominal pain. Patient agrees to go to [facility]. Color to [facility] and spoke with Dr. Kramer use wear this patient has accepted the patient for transfer. Patient advised to remain NPO and go immediately to the ER. Differential Diagnosis Differential diagnosis: Likely small bowel obstruction and other (Peritonitis, pyelonephritis, urinary tract infection) Critical Care Time Critical Care Time Critical Care Time: No Discharge Plan Discharge Clinical Impression: Abdominal pain Patient Disposition: Acute Care Hospital Condition: Stable Patient Language: Greek Prescriptions: No Action hydroxyzine pamoate [Vistaril] 25 mg capsule 25 mg PO TID docusate sodium [Dulcolax Stool Softener (dss)] 100 mg capsule 100 mg PO DAILY vitamin B complex Tablet 1 tablet PO DAILY cholecalciferol (vitamin D3) 50 mcg (2,000 unit) capsule 50 mcg PO DAILY trazodone 100 mg tablet 150 mg PO QHS Qty: 30 0RF Rx Instructions: LAST REFILL UNTIL SEEN Probiotic 3 billion cell capsule 3,000 mmu cells PO DAILY Rx Instructions: administer with a meal clonazepam 1 mg tablet 1 mg PO BID lubiprostone 8 mcg capsule 8 mcg PO BID peppermint oil 50 mg capsule,delayed release(DR/EC) 250 mg PO DAILY calcium carbonate 600 mg calcium (1,500 mg) tablet 600 mg PO DAILY famotidine 40 mg tablet 20 mg PO .At Bedtime qylkaciigksg-Iy-pnln-minerals 18-0.4 mg tablet 1 tablet PO DAILY omeprazole 20 mg capsule,delayed release(DR/EC) 20 mg PO DAILY Qty: 90 1RF dicyclomine 10 mg capsule 10 mg PO QID Qty: 1 0RF lamotrigine 25 mg tablet 50 mg PO DAILY ondansetron HCl 4 mg tablet See Rx Instructions .ROUTE .COMPLEX Qty: 20 1RF Dose Instruction: TAKE 1 TABLET BY MOUTH EVERY 8 HOURS NEEDED FOR NAUSEA AND VOMITING Rx Instructions: TAKE 1 TABLET BY MOUTH EVERY 8 HOURS NEEDED FOR NAUSEA AND VOMITING Follow-up/Referrals: PHYSICIAN,TAX ACCOUNTING ASSISTANT [Primary Care Provider] - Time of Disposition: 14:13
== END 2024-08-27 14:23 | disposition short-term general hospital (02) ==
DX: R10.30 Lower abdominal pain, unspecified (principal); Z87.891 Personal history of nicotine dependence; F12.90 Cannabis use, unspecified, uncomplicated; K21.9 Gastro-esophageal reflux disease without esophagitis; F41.9 Anxiety disorder, unspecified; Z87.440 Personal history of urinary (tract) infections
CPT/HCPCS: 99213; G0463

== ENCOUNTER 2024-08-27 18:02 | Emergency (ER) | payer OTHER, SELFPAY ==
--- NOTE | ~2024-08-27 | CT_ITS ---
CLINICAL INDICATION: Abdominal pain COMPARISON: 06/23/2024. TECHNIQUE: Multiple contiguous axial images of the abdomen and pelvis were performed without the admi nistration of intravenous contrast The dose-length product (DLP) was 410.06 mGy-cm. Automated exposure control and iterative reconstruction technique were employed. FINDINGS/OBSERVATIONS: Visualized lower thorax: The bilateral lung bases are clear. The heart is of normal size, without pericardial effusion. Small hiatal hernia is present. Liver: The liver demonstrates homogeneous attenuation and is not enlarged. Gallbladder and biliary system: The gallbladder is only minimally distended, and otherwise unremarkable. Pancreas: Limited evaluation of the pancreas secondary to the lack of intravenous contrast. Spleen: The spleen demonstrates homogeneous attenuation and is not enlarged. Kidneys: The bilateral kidneys are unremarkable, without hydronephrosis or renal calculi. Adrenal glands: Unremarkable. Gastrointestinal tract: Colonic diverticulosis without surrounding inflammatory change. Appendix: Surgically absent. Vasculature: Unremarkable. Lymph nodes: Limited evaluation without intravenous contrast. Pelvic structures: The bladder is decompressed, and otherwise unremarkable. The uterus is anteverted and anteflexed, and otherwise unremarkable. Body wall and musculoskeletal: Small fat-containing umbilical hernia. No significant degenerative disease within the lower thoracic or lumbosacral spine. IMPRESSION: No acute pathology within the abdomen or pelvis, as detailed above. Reviewed, dictated and finalized at location A.
[2024-08-27 18:04] VITALS: BP 98/58; PULSE 65; RESP 16; TEMP 36.4; O2SAT 100
--- OUTSIDE RECORDS SUMMARY | 2024-08-27 18:05 | XMS_ITS | Encounter Summary ---
Author Organization [facility] Healthcare Address [address] [place] [address] Care Team Providers Care Lighthouse Keeper Name Role Phone Álvaro Colmenares DO Primary Care Provider [phone]- [phone] Reason for Visit * Reason Comments Abdominal Pain Abdominal pain, pelv ic pain, nausea, urinary urgency, frequency, incontinence, started yesterday. Encounter Details Date Type Department Care Team (Late st Contact Info) Description 08/27/2024 4:45 PM CDT Office Visit [facility] at [address] [id number] Marylu Weller, COLORIST PHOTOGRAPHY [address] [place] [id number] Urinary incontinence, unspecified type (Primary Dx); Abdominal pain; Dysuria Social History Tobacco Use Types Packs/Day Years Used Date Smoking Tobacco: Former AUDIT-C Answer Date Recorded Q1: How often do you have a drink containing alc ohol? Never 05/06/2023 Average Number of Drinks Not on file 024 Frequency of Binge Drinking Not on file 04/25 PHQ-2 Answer Date Recorded PHQ-2 Total Score (If total score is 3 or more points, staff should administer the PHQ-9) 0 07/02/2022 Personal Safety Answer Date Recorded Have you ever been in or are you currently in a harmful physical or emotional relationship or is someone making you feel afraid or unsafe? 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 Gender Identity Not on file Sexual Orientation Not on file documented as of this encounter Last Filed Vital Signs Vital Sign Reading Time Taken Comments Blood Pressure 112/74 08/27/2024 5:01 PM CDT Pulse 77 08/27/2024 5:01 PM CDT Temperature 36.8 C (98.3 F) 08/27/2024 5:01 PM CDT Respiratory Rate 16 08/27/2024 5:01 PM CDT Oxygen Saturation 98% 08/27/2024 5:01 PM CDT Inhaled Oxygen Concentration - - Weight 73.9 kg (163 lb) 08/27/2024 5:01 PM CDT Height - - Body Mass Index 27.12 03/23/2023 12:06 PM INSTRUMENT REPAIR TECHNICIAN documented in this encounter Patient Instructions * Patient Instructions* Marylu Weller NP - 08/27/2024 4:45 PM CDT Patient presents with urinary incontinence and abdominal pain beginning this morning (worse than her appendicitis this year). Patient does have dysuria. Concerned for intraabdominal etiology. Lower left and right abdominal tenderness upon exam. Dx: Urinary incontinence, unspecified type Test Result Released: No ([facility] 0 Result Notes Component Ref Range & Units 08/27/24 1715 Color, Urine, POC Yellow Clarity, ur, POC Clear Cloudy Abnormal Glucose, ur, POC Negative Negative Bilirubin, ur, POC Negative Negative Ketones, ur, POC Negative Trace Abnormal Specific [place], POC 1.003 - 1.030 1.030 Blood, ur, POC Negative Large Abnormal pH, ur, POC 5.0 - 8.0 6.0 Protein, ur, POC Negative 300. Abnormal Urobilinogen, urine, POC 0.2 - 1.0 mg/dL 0.2 Nitrite, ur, POC Negative Positive Abnormal Leukocytes, ur, POC Negative Small Abnormal Lot Number 0 documented in this encounter Plan of Treatment Scheduled Orders Name Type Priority Associated Diagnoses Orde r Schedule Urine culture Urine, clean voided Microbiology Routine Urinary incontinence, unspecified type Expected: 08/27/2024, Expires: 08/27/2025 Vaginitis panel Vaginal Microbiology Routine Urinary incontinence, unspecified type Expected: 08/30/2024, Expires: 08/27/2025 documented as of this encounter Procedures Procedure Name Priority Date/Time Associated Diagnosis Comments POCT URINALYSIS DIPSTICK Routine 08/27/2024 5:15 PM CDT Urinary incontinence, unspecified type documented in this encounter Results * (ABNORMAL) POCT urinalysis dipstick (08/27/2024 5:15 PM CDT) Color, Urine, POC Yellow Clarity, ur, POC Cloudy(A) Clear Glucose, ur, POC Negative Negative Bilirubin, ur, POC Negative Negative Ketones, ur, POC Trace(A) Negative Specific [place], POC 1.030 1.003 - 1.030 Blood, ur, POC Large(A) Negative pH, ur, POC 6.0 5.0 - 8.0 Protein, ur, POC 300.(A) Negative Urobilinogen, urine, POC 0.2 0.2 - 1.0 mg/dL Nitrite, ur, POC Positive(A) Negative Leukocytes, ur, POC Small(A) Negative Lot Number 0 Urine 08/27/2024 5:15 PM CDT Marylu Weller NP POINT OF CARE TEST ORDERAB LES Final Result documented in this encounter Visit Diagnoses Diagnosis Urinary incontinence, unspecified type- Primary Abdominal pain Abdominal pain, unspecified site Dysuria documented in this encounter Care Teams Lighthouse Keeper Relationship Specialty Start Date End Date Álvaro Colmenares DO PCP - General Internal Medicine 10/20/21 documented as of this encounter
--- OUTSIDE RECORDS SUMMARY | 2024-08-27 18:05 | XMS_ITS | Clinical Summary ---
Author Organization [facility] Address [address] [place] [address] Care Team Providers Care Dealer Analyst Name Role Phone Álvaro Colmenares DO Primary Care Provider [phone] Allergies Active Allergy Reactions Criticality Noted Date Comments Amoxicillin Hives 10/06/2018 Sulfamethoxazole-Trimethoprim Anaphylaxis High 10/06 Latex Hives 10/06/2018 Penicillins Throat swelling 10/25/2019 Metoclopramide Shakiness 10/06/2018 Bupropion Unknown 10/09/2018 Medications Probiotic Product ([employer] PROBIOTIC MAXIMUM STRENGTH) Cap Take 1 capsule by mouth daily. 10/18/19 15 Active Misc Natural Products (SUPER CRANBERRY/C) 100-4528 MG Cap Take 1 capsule by mouth daily. 10/18/19 15 Active docusate sodium 100 MG capsule Take 100 mg by mouth daily. Active cyclobenzaprine 10 MG tablet TAKE 1 TABLET (10 MG) BY ORAL ROUTE 3 TIMES PER DAY NEEDED FOR BACK PAIN 02/08/20 20 Active traZODone (DESYREL) 100 MG tablet Take 2 tablets (200 mg total) by mouth nightly at bedtime. 12/27/19 Active omeprazole 40 MG capsule Take 40 mg by mouth daily. Active Na sulfate-K sulfate-Mg sulfate (SUPREP BOWEL PREP KIT) 17.5-3.13-1.6 GM/177ML SolutionIndication s:Nausea,Epigastri c pain,Nausea and vomiting, intractability of vomiting not specified, unspecified vomiting type,LUQ pain Take 177 mLs by mouth every 12 (twelve) hours. Pour ONE (1) 6-ounce bottle of SUPREP liquid into the mixing container. Add cool drinking water to the 16-ounce line on the container and mix. Have the patient Drink: ALL the liquid in the container, then drink two (2) more 16-ounce containers of water over the next 1 hour. 354 mL 04/02/20 21 Active hydrOXYzine 25 MG capsule Take 25 mg by mouth 3 (three) times daily as needed for Itching. Active 5-Hydroxytryptopha n (5-HTP) 100 MG Cap Take 1 tablet by mouth nightly. 02/24/[address] [place]o Wort 300 MG Cap Take 1 tablet by mouth 3 (three) times daily. 02/24/20 21 Active FAMOTIDINE 40 MG tabletIndications: Nausea,Epigastric pain TAKE 1 TABLET BY MOUTH DAILY 90 tablet 05/12/19 22 Active ibuprofen (MOTRIN) 600 MG tablet Take 1 tablet (600 mg total) by mouth every 6 (six) hours as needed for Pain. 30 tablet 10/08/19 23 Active clonazePAM (KLONOPIN) 1 MG tablet Take 1 tablet (1 mg total) by mouth 2 (two) times daily as needed for Anxiety. Active LORazepam (ATIVAN) 2 MG tablet Take 1 tablet (2 mg total) by mouth 2 (two) times a day. Active ondansetron (ZOFRAN) 4 MG tablet Take 1 tablet (4 mg total) by mouth 2 (two) times a day. Active ondansetron (ZOFRAN-ODT) 4 MG disintegrating tablet Take 1 tablet (4 mg total) by mouth every 8 (eight) hours as needed for Nausea. 20 tablet 11/09/19 24 Active traMADol (ULTRAM) 50 MG tabletIndications: Acute Pain < 7 Day Supply Take 1 tablet (50 mg total) by mouth every 8 (eight) hours as needed for Pain. Indications: Acute Pain < 7 Day Supply 21 tablet 11/09/19 24 Active naloxone (NARCAN) 4 MG/0.1ML nasal spray 1 spray by Nasal route as needed for Opioid reversal. may repeat every 2 to 3 minutes in alternating nostrils until medical assistance becomes available 1 each 11/09/19 24 025 Active Active Problems Problem Noted Date Diagnosed Date LUQ pain 02/12/2021 Overview (02/12/2021): Added automatically from request for surgery [id number] Nausea and vomiting, intract ability of vomiting not specified, unspecified vomiting type 02/12/2021 Overview (02/12/2021): Added automatically from request for surgery [id number] Epigastric pain 02/12/2021 Overview (02/12/2021): Added automatically from request for surgery [id number] Major depressive disorder in partial remission, unspecified whether recurrent 12/14/2018 Neck pain 12/14/2018 Vitamin D deficiency 12/12/2018 PUD (peptic ulcer disease) 12/12/2018 Primary insomnia 12/12/2018 Other constipation 12/12/2018 Anxiety 12/12/2018 Resolved Problems Problem Noted Date Diagnosed Date Resolved Date ([facility]) 10/25/2019 10/27/19 Missed ([facility]) 10/10/2018 Immunizations Immunization Administration Dates Next Due Dtap (Generic) 1986,1986,1986 Dtap/Hep B/Ipv 1986,1986,1986 Fluzone 6 Months+ Quad (0.5 mL Prefilled Syringe) 02/26/2020,02/06/2019 Hepatitis B 08/20/1996,02/22/1996,01/17/1996 Hib Vaccine, Prp-Omp 11/05/1987 Influenza Adult (Generic) 02/06/2019,02/26/2016 MMR (Generic) 11/08/1991,07/10/1987 Opv 11/08/1991, 7,1986,1986 Polio Ipv (Generic) 07/10/1987 Tdap (Generic) 02/26/2016,10/21/2009 Varicella Vaccine 08/23/1992 Family History Medical History Relation Comments Hyperlipidemia Father Hypertension Father Migraines Father Diabetes Maternal Grandfather Arthritis Maternal Grandmother Diabetes Maternal Grandmother Arthritis Mother multiple back an d neck surgeries, osteoarthritis Asthma Mother CHF Mother COPD Mother Diabetes Mother Hypertension Mother Stroke Mother Alzheimers Paternal Grandmother Heart Disease Paternal Grandmother Relation Status Comments Father Maternal Grandfather Maternal Grandmother Mother Paternal Grandmother Social History Tobacco Use Types Packs/Day Years Used Date Smoking Tobacco: Former Cigarettes Q uit: 2013 Smokeless Tobacco: Never Alcohol Use Standard Drinks/Week Comments No 0 (1 standard drink = 0.6 oz pur e alcohol) Humiliation, Afraid, Rape, and Kick questionnair e Answer Date Recorded Fear of Current or Ex-Partner No Emotionally Abused No 06/26/2019 Physically Abused No 06/26/2019 Sexually Abused No 06/26/2019 AUDIT-C Answer Date Recorded Frequency of Alcohol Consumption Never 10/06/2018 Average Number of Drinks Not on file 019 Frequency of Binge Drinking Not on file 09/23 PHQ-2 Answer Date Recorded PHQ-2 Score - If the patient scores above 3, please move on to questions 3-9 4 02/26/2020 Comments No Sex and Gender Information Value Date Recorded Sex Assigned at Not on file Legal Sex Female 8:03 PM CDT Gender Identity Female 05/07/2021 8:53 AM MARINE SURVEYOR Sexual Orientation Straight 05/07/2021 8: 53 AM MARINE SURVEYOR Last Filed Vital Signs Vital Sign Reading Time Taken Comments Blood Pressure 108/58 11/10/2023 12:00 AM CDT Pulse 67 11/10/2023 12:00 AM CDT Temperature 36.6 C (97.8 F) 11/09/2023 10:08 PM CDT Respiratory Rate 18 11/09/2023 10:08 PM CDT Oxygen Saturation 97% 11/10/2023 12:00 AM CDT Inhaled Oxygen Concentration - - Weight 74.8 kg (165 lb) 11/09/2023 10:08 PM CDT Height 160 cm (5' 3 ) 11/09/2023 10:08 PM CDT Body Mass Index 29.23 11/09/2023 10:08 PM CDT Plan of Treatment Health Maintenance Due Date Last Done Comments Cervical Cancer Screening Pap Smear (Age 30 to 64) Every 3 Years 1986 Annual Physical 1989 Hepatitis C 2004 Cervical Cancer Screening Pap with HPV Testing (Age 30 to 64) Every 5 Years 2016 Cervical Cancer Screening with HPV 2016 COVID-19 Vaccine ( season) 2023 03/13/2021, 07/17/2020, 06/26/2020 DTaP, Tdap and Td Vaccines (6 - Td or Tdap) 02/25/2026 02/26/2016, 10/21/2009, 1986, Additional history exists Hepatitis B Vaccines Completed 08/20/1996, 02/22/1996, 01/17/1996, Additional history exists HPV Vaccines Aged Out No longer eligi ble based on patient's age to complete this topic Meningococcal B Vaccine Aged Out No l onger eligible based on patient's age to complete this topic Meningococcal Vaccine Aged Out No sunday lourdes eligible based on patient's age to complete this topic Pneumococcal Vaccine: Pediatrics (0 to 5 Years) and At-Risk Patients (6 to 49 Years) Aged Out No longer eligible based on patient's age to complete this topic RSV Immunizations Under 20 Months Aged Out No longer eligible based on patient's age to complete this topic Insurance [facility] Advance Directives * Full Code (Latest Code Status on File) Date Activated Date Inactivated Comments 10/25/2019 3:57 AM 10/25/2019 6:07 PM Care Teams Dealer Analyst Relationship Specialty Start Date End Date Álvaro Colmenares DO [address] [facility] [address] [place] [address] PCP - General INTERNAL MEDICINE 6/15/23
--- OUTSIDE RECORDS SUMMARY | 2024-08-27 18:05 | XMS_ITS | Encounter Summary ---
Author Organization [facility] Address [address] [place] [address] Care Team Providers Care Woods Boss Name Role Phone Lola Mayorga Primary Care Provider [phone] lÁvaro Colmenares DO Primary Care Provider [phone] Reason for Visit * Reason Onset Date Comments Hospital Follow Up 11/07/2019 Encounter Details Date Type Department Care Team (Late st Contact Info) Description 11/07/2019 Hospital Follow-up Call [facility] [place], [place] [id number] Dori Davidson, [facility] Follow [facility] Social History Tobacco Use Types Packs/Day Years [...] 09/23 PHQ-2 Answer Date Recorded PHQ-2 Score 1 03/20/2019 Comments No Sex and Gender Information Value Date Recorded Sex Assigned at Not on file Legal Sex Female 8:03 PM CDT Gender Identity Female 05/07/2021 8:53 AM FUR BLOWER OPERATOR Sexual Orientation Straight 05/07/2021 8: 53 AM FUR BLOWER OPERATOR COVID-19 Exposure Response Date Recorded In the last month, have you been in contact with someone who was confirmed or suspected to have Coronavirus / COVID-19? No / Unsure 10/25/2019 4:42 AM CDT documented as of this encounter Functional Status * RETIRED Are you deaf or do you have serious difficulty hearing Answer Date of Assessment Author Status No 10/25/2019 4:50 AM CDT Activ e * RETIRED Are you blind or do you have serious difficulty seeing, even when wearing glasses? Answer Date of Assessment Author Status No 10/25/2019 4:50 AM CDT Activ e * Do you have serious difficulty walking or climbing stairs? Answer Date of Assessment Author Status No 10/25/2019 4:50 AM CDT Wilma Palma RN Active * Do you have difficulty dressing or bathing? Answer Date of Assessment Author Status No 10/25/2019 4:50 AM CDT Wilma Palma RN Active * Because of a physical, mental, or emotional condition, do you have difficulty doing errands alone such as visiting a doctor's office or shopping? Answer Date of Assessment Author Status No 10/25/2019 4:50 AM ELT Wilma Palma RN Active documented as of this encounter Mental Status * Because of a physical, mental, or emotional condition, do you have serious difficulty concentrating, remembering, or making decisions? Answer Entry Date Author Status No 10/25/2019 4:50 AM Wilma Herrera RN Active documented in this encounter Plan of Treatment Not on file documented as of this encounter Visit Diagnoses Not on filedocumented in this encounter Additional Health Concerns Assessment Noted Time PHQ-9 Depression Total Score: 8 12/13/19 19 3:57 PM CDT documented as of this encounter Care Teams Woods Boss Relationship Specialty Start Date End Date Lola Mayorga APNP [facility] [place] [address] PCP - General NURSE PRACTITIONER 12/12/18 10/06/22 Álvaro Colmenares DO [address] [facility] [address] [place] [address] PCP - General INTERNAL MEDICINE 10/07/22 documented as of this encounter
--- OUTSIDE RECORDS SUMMARY | 2024-08-27 18:05 | XMS_ITS | Clinical Summary ---
Author Organization [facility] [address] [place] [id number] Care Team Providers Care Inside Trucker Name Role Phone Álvaro Colmenares DO Primary Care Provider [phone] Allergies Active Allergy Reactions Criticality Noted Date Comments Amoxicillin Hives Medium 01/20/2018 Hives Bupropion Rash Medium 10/09/2018 Latex Hives Medium 01/20/2018 Hives Metoclopramide Dizziness Low 01/20/2018 Dizziness/Light Headed Morphine Stomach upset Low 01/20/2018 Stomach/GI Upset Sulfamethoxazole-Trimethopr im Anaphylaxis High 10/06/2018 Medications docusate sodium (COLACE) 100 mg capsule Take 1 capsule (100 mg total) by mouth 3 (three) times a day as needed 3 capsules at bedtime Active famotidine (PEPCID) 40 mg tablet Take 0.5 tablets (20 mg total) by mouth daily 2 Active hydrOXYzine (VISTARIL) 25 mg capsule Take 1 capsule (25 mg total) by mouth 3 (three) times a day as needed Active omeprazole (PriLOSEC) 20 mg capsule omeprazole 20 mg capsule,delayed release Active traZODone (DESYREL) 100 mg tablet 1.5 tablets (150 mg total) nightly Active NOT IN DATABASE, PRESCRIPTION, Drug name: GADA Dose: 750mg Route: Oral Frequency: 2 times a day Duration: Active [place]'s wort 300 mg tablet Take 300 mg by mouth 3 (three) times a day Active multivit,calc,m ins/iron/folic (WOMEN'S ONE DAILY ORAL) Take by mouth Acti ve cholecalciferol , vitamin D3, (VITAMIN D3 ORAL) Take by mouth daily Active vitamin b complex tablet Take 1 tablet by mouth daily Active gabapentin (NEURONTIN) 300 mg capsule 3 Active clonazePAM (KlonoPIN) 1 mg tablet 3 Active diclofenac (CATAFLAM) 50 mg tablet 3 Active lamoTRIgine (LaMICtal) 25 mg tablet 3 Active lubiprostone (AMITIZA) 8 mcg capsule Take 1 capsule (8 mcg total) by mouth 2 (two) times a day with meals Take with meals 60 capsule 11 3 Active dicyclomine (BENTYL) 10 mg capsule Take 1 capsule (10 mg total) by mouth 4 (four) times a day before meals and nightly 120 capsule 3 5 Active ondansetron (ZOFRAN) 4 mg tablet Take 1 tablet (4 mg total) by mouth every 12 (twelve) hours as needed for nausea or vomiting 60 tablet 3 5 Active Active Problems Problem Noted Date Diagnosed Date Rectal bleeding 03/23/2023 Assessment & Plan (03/23/2023 8:12 PM ART THERAPY SPECIALIST): Intermittent. May be due to hemorrhoids, colitis or less likely neoplasm. Colonoscopy is recommended and scheduled. The patient was informed about the risks, benefits and alternatives to colonoscopy. The risks including but not limited to perforation, bleeding, infection and anesthetic complications with discussed with the patient and the patient verbalized full understanding. Weight gain 03/23/2023 Assessment & Plan (03/23/2023 8:13 PM ART THERAPY SPECIALIST): She complain of unexplained weight gain. Denies excessive food consumption. Concerned about metabolic disease. She is referred to facility planner for evaluation. Hemorrhoids 07/02/2022 Assessment & Plan (07/02/2022 11:53 AM ART THERAPY SPECIALIST): She complain of worsening external hemorrhoids. I reviewed previous colonoscopy report (done by another procurement cost coordinator at outside facility). She was documented to have mild hemorrhoids. She has tried conservative treatment without relief. I will refer her to colorectal surgeon for evaluation. Generalized abdominal pain 11/18/2021 Assessment & Plan (11/18/2021 2:58 PM CDT): Severe generalized abdominal pain. Associated with tenderness. Even though the patient had IBS, and concerned that she may have intra-abdominal inflammatory process. Will check CBC, CMP. Obtain CT scan abdomen and pelvis with contrast. Will obtain and review previous endoscopy and colonoscopy reports. Irritable bowel syndrome wit h both constipation and diarrhea 11/18/2021 Assessment & Plan (03/23/2023 8:12 PM ART THERAPY SPECIALIST): Worsening constipation. Linzess 290 mcg was not helpful. Patient and also complain about the cost of the medication. Amitiza 8 mcg b.i.d. is prescribed. Refills on dicyclomine provided Advised to call if symptoms persist. Assessment & Plan (07/02/2022 11:56 AM ART THERAPY SPECIALIST): Worsening IBS symptoms (bloating, constipation and abdominal pain). She responded to Linzess but there were insurance issues. She has since changed insurance companies. I reviewed CT scan abdomen and pelvis (2021) TTG IgA normal. Linzess 290 mcg daily is prescribed. We discussed other alternative medications such as Trulance and Amitiza but the process seem to be about the same. Samples provided. Assessment & Plan (11/18/2021 2:57 PM CDT): Moderately svere. Previously responded to Linzess 145 mcg but could not continue the medication because of high co-pay. Reportedly had colonoscopy and endoscopy in the past. Reports currently he is unavailable. I have requested for previous endoscopy and colonoscopy reports for further review. I had a lengthy conversation with patient and regarding the natural history of irritable bowel syndrome. I informed have that there is no cure but symptoms can be better controlled and may flare up depending on life experiences and dietary indiscretion. They verbalized understanding. Epigastric pain 02/12/2021 Overview (11/18/2021): Added automatically from request for surgery [id number] Assessment & Plan (03/23/2023 8:10 PM ART THERAPY SPECIALIST): Moderately severe. Associated with tenderness. Differential diagnosis includes esophagitis, gastritis, gastric ulcer, duodenal ulcer. EGD is recommended and scheduled. Check CBC, CMP, amylase, lipase. Nausea and vomiting 02/12/2021 Overview (11/18/2021): Added automatically from request for surgery [id number] Assessment & Plan (07/02/2022 11:57 AM ART THERAPY SPECIALIST): Does well with Zofran. Refills of Zofran approved. Assessment & Plan (11/18/2021 2:55 PM CDT): Chronic. Has IBS. Responded to Zofran in the past. Refills of Zofran authorized. Major depressive disorder in partial remission 0 12/14/2018 Neck pain 12/14/2018 Anxiety 12/12/2018 Other constipation 12/12/2018 Primary insomnia 12/12/2018 Vitamin D deficiency 12/12/2018 Encounters Date Type Department Care Team Description 08/27/2024 4:45 PM CDT Office Visit [facility] at [address] [phone] Marylu Weller NP Urinary incontinence, unspecified type (Primary Dx); Abdominal pain; Dysuria 07/06/[address] [facility] Gastroenterology at [address] [address] Dina Johnson MD Med Management (Ondansetron/Dicycl omine) from Last 3 Months Immunizations Immunization Administration Dates Next Due DTaP / Hep B / IPV 1986,1986, 987 DTaP / IPV 07/10/1987 DTaP, Unspecified 1986,1986,06/12/18 87 Hep B, Unspecified 08/20/1996,02/22/1996, 996 Hib (PRP-OMP) 11/05/1987 Influenza, Quadrivalent, Spl it, Preservative Free, Intramuscular 02/26/2020,02/06/2019,01/20/2018 Influenza, Unspecified 02/26/2016 MMRV 11/08/1991,07/10/1987 OPV, Unspecified 11/08/1991, 7,1986,06/12 Tdap 02/26/2016,10/21/2009 Varicella 08/23/1992 Surgical History Surgery Date Site/Laterality Comments DILATION AND CURETTAGE OF UTERUS Medical History Medical History Date Comments Anxiety Spinal stenosis Family History Medical History Relation Name Comments Hypertension Father Migraines Father Prostate cancer Father Stroke Mother Colon cancer Paternal Grandmother Relation Name Status Comments Father Mother Paternal Grandmother Social History Tobacco Use Types Packs/Day Years Used Date Smoking Tobacco: Former Tobacco Cessation:Counseling Given: Not Answered AUDIT-C Answer Date Recorded Q1: How often do you have a drink containing alc ohol? Never 05/06/2023 Average Number of Drinks Not on file Frequency of Binge Drinking Not on file [...] on file Legal Sex Female 12:47 AM ART THERAPY SPECIALIST Gender Identity Not on file Sexual Orientation Not on file Obstetrics History Last Filed Vital Signs Vital Sign Reading Time Taken Comments Blood Pressure 112/74 08/27/2024 5:01 PM CDT Pulse 77 08/27/2024 5:01 PM CDT Temperature 36.8 C (98.3 F) 08/27/2024 5:01 PM CDT Respiratory Rate 16 08/27/2024 5:01 PM CDT Oxygen Saturation 98% 08/27/2024 5:01 PM CDT Inhaled Oxygen Concentration - - Weight 73.9 kg (163 lb) 08/27/2024 5:01 PM CDT Height 165.1 cm (5' 5 ) 03/23/2023 12:06 PM ART THERAPY SPECIALIST Body Mass Index 27.12 03/23/2023 12:06 PM ART THERAPY SPECIALIST Plan of Treatment Health Maintenance Due Date Last Done Comments Cervical Cancer Screening 1986 Hepatitis C Screening 1986 Regular Well Visit/Exam 18-64 2004 Depression Screening 07/03/2023 07/02/2022, 11/19/19 22 Covid-19 Vaccine ( season) 2023 03/13/2021, 07/17/2020, 06/26/2020 Influenza Vaccine (Season Ended) 2024 03/13/2021, 02/26/2020, 02/06/2019, Additional history exists DTaP/Tdap/Td Vaccine (7 - Td or Tdap) 02/25/2026 02/26/2016, 10/21/2009, 07/10/1987, Additional history exists Varicella Vaccines Completed 08/23/1992, 0 11/08/1991, 07/10/1987 Hepatitis B Screening Completed 08/20/1996 , 02/22/1996, 01/17/1996, Additional history exists HPV Vaccines Aged Out No longer eligi ble based on patient's age to complete this topic Pneumococcal vaccine <65 Aged Out No longer eligible based on patient's age to complete this topic Procedures Procedure Name Priority Date/Time Associated Diagnosis Comments POCT URINALYSIS DIPSTICK Routine 08/27/2024 5:15 PM CDT Urinary incontinence, unspecified type from Last 3 Months Results * (ABNORMAL) POCT urinalysis dipstick (08/27/2024 5:15 PM CDT) Color, Urine, POC Yellow Clarity, ur, POC Cloudy(A) Clear Glucose, ur, POC Negative Negative Bilirubin, ur, POC Negative Negative Ketones, ur, POC Trace(A) Negative Specific [place], POC 1.030 1.003 - 1.030 Blood, ur, POC Large(A) Negative pH, ur, POC 6.0 5.0 - 8.0 Protein, ur, POC 300.(A) Negative Urobilinogen, urine, POC 0.2 0.2 - 1.0 mg/dL Nitrite, ur, POC Positive(A) Negative Leukocytes, ur, POC Small(A) Negative Lot Number 0 Urine 08/27/2024 5:15 PM CDT Marylu Weller NP POINT OF CARE TEST ORDERAB LES Final Result from Last 3 Months Insurance [facility] Address[facility] [id number] [place] [address] [facility] CHOICE PLUS [facility] H[facility]/PPO Address: [address] [address] [place] [address] [facility] CHOICE PLUS [facility] H[facility]/PPO Address: [facility] [id number] [place] [address] Care Teams Inside Trucker Relationship Specialty Start Date End Date Álvaro Colmenares DO PCP - General Internal Medicine 10/20/21
--- OUTSIDE RECORDS SUMMARY | 2024-08-27 18:05 | XMS_ITS | Referral Summary ---
Author Organization [facility] Physician [facility] [address] [place] [phone] Care Team Providers Care Personnel Analyst Name Role Phone Álvaro Colmenares DO Primary Care Provider [phone] Encounters Date Type Department Care Team Description 08/27/2024 4:45 PM CDT Office Visit [facility]ient [facility] at [address] [phone] Marylu Weller NP Urinary incontinence, unspecified type (Primary Dx); Abdominal pain; Dysuria 07/06/2024 Telephone [facility] Gastroenterology at [address] [place] [phone] Dina Johnson MD Med Management (Ondansetron/Dicycl omine) from Last 3 Months Allergies Active Allergy Reactions Criticality Noted Date [...] Frequency: 2 times a day Duration: Active Dony's wort 300 mg tablet Take 300 mg [...] 03/23/2023 Assessment & Plan (03/23/2023 8:12 PM FIRESTOPPER INSTALLER): Intermittent. May be due to hemorrhoids, colitis or less likely neoplasm. Colonoscopy is recommended and scheduled. The patient was informed about the risks, benefits and alternatives to colonoscopy. The risks including but not limited to perforation, bleeding, infection and anesthetic complications with discussed with the patient and the patient verbalized full understanding. Weight gain 03/23/2023 Assessment & Plan (03/23/2023 8:13 PM FIRESTOPPER INSTALLER): She complain of unexplained weight gain. Denies excessive food consumption. Concerned about metabolic disease. She is referred to robotic maintenance technician for evaluation. Hemorrhoids 07/02/2022 Assessment & Plan (07/02/2022 11:53 AM FIRESTOPPER INSTALLER): She complain of worsening external hemorrhoids. I reviewed previous colonoscopy report (done by another clinical advisor at outside facility). She was documented to [...] 11/18/2021 Assessment & Plan (03/23/2023 8:12 PM FIRESTOPPER INSTALLER): Worsening constipation. Linzess 290 mcg was not helpful. Patient and also complain about the cost of the medication. Amitiza 8 mcg b.i.d. is prescribed. Refills on dicyclomine provided Advised to call if symptoms persist. Assessment & Plan (07/02/2022 11:56 AM FIRESTOPPER INSTALLER): Worsening IBS symptoms (bloating, constipation and abdominal [...] (11/18/2021): Added automatically from request for surgery [id number] Assessment & Plan (03/23/2023 8:10 PM FIRESTOPPER INSTALLER): Moderately severe. Associated with tenderness. Differential diagnosis includes esophagitis, gastritis, gastric ulcer, duodenal ulcer. EGD is recommended and scheduled. Check CBC, CMP, amylase, lipase. Nausea and vomiting 02/12/2021 Overview (11/18/2021): Added automatically from request for surgery [id number] Assessment & Plan (07/02/2022 11:57 AM FIRESTOPPER INSTALLER): Does well with Zofran. Refills of Zofran approved. Assessment & Plan (11/18/2021 2:55 PM CDT): Chronic. Has IBS. Responded to Zofran in the past. Refills of Zofran authorized. Major depressive disorder in partial remission 0 12/14/2018 Neck pain 12/14/2018 Anxiety 12/12/2018 Other constipation 12/12/2018 Primary insomnia 12/12/2018 Vitamin D deficiency 12/12/2018 Immunizations Immunization Administration Dates Next Due DTaP / Hep B / IPV 1986,1986, 987 DTaP / IPV 07/10/1987 DTaP, Unspecified 1986,1986,06/12/18 87 Hep B, Unspecified 08/20/1996,02/22/1996, 996 Hib (PRP-OMP) 11/05/1987 Influenza, Quadrivalent, Spl it, Preservative Free, Intramuscular 02/26/2020,02/06/2019,01/20/2018 Influenza, Unspecified 02/26/2016 MMRV 11/08/1991,07/10/1987 OPV, Unspecified 11/08/1991, 7,1986,06/12 Tdap 02/26/2016,10/21/2009 Varicella 08/23/1992 Social History Tobacco Use Types Packs/Day Years [...] on file Legal Sex Female 12:47 AM FIRESTOPPER INSTALLER Gender Identity Not on file Sexual Orientation Not on file Last Filed Vital Signs Vital Sign Reading [...] cm (5' 5 ) 03/23/2023 12:06 PM FIRESTOPPER INSTALLER Body Mass Index 27.12 03/23/2023 12:06 PM FIRESTOPPER INSTALLER Plan of Treatment Not on file Procedures Procedure Name Priority Date/Time Associated Diagnosis Comments POCT URINALYSIS DIPSTICK Routine 08/27/2024 5:15 PM CDT Urinary incontinence, unspecified type from Last 3 Months Results * (ABNORMAL) POCT urinalysis dipstick (08/27/2024 5:15 PM CDT) Color, Urine, POC Yellow Clarity, ur, POC Cloudy(A) Clear Glucose, ur, POC Negative Negative Bilirubin, ur, POC Negative Negative Ketones, ur, POC Trace(A) Negative Specific [place], POC 1.030 1.003 - 1.030 Blood, ur, [...] Final Result from Last 3 Months Insurance [facility] OPEN ACCESS [facility] CHOICE PL[facility] H[facility]/PPO Address: [address] [address] [place] [address] [facility] CHOICE PLUS [facility] H[facility]/PPO Address: [address] [address] [place] [address] Care Teams Personnel Analyst Relationship Specialty Start Date End Date Álvaro Colmenares DO PCP - General Internal Medicine 10/20/21
--- NOTE | 2024-08-27 18:15 | ED.FEMALEGU ---
HPI - Female Genitourinary General Chief complaint: Urogenital-Female <Mellisa Lau PA-C - Last Filed: 08/29/24 10:00> Stated complaint: UTI sent from <Mellisa Lau PA-C - Last Filed: 08/29/24 10:00> Time Seen by Provider: 08/27/24 18:16 <Mellisa Lau PA-C - Last Filed: 08/29/24 10:00> Focused HPI: This is a 39 year old female that presents to the ER for urinary symptoms. Ongoing since yesterday. Reports urinary frequency, incontinence. Also reports lower abdominal pain. Reports she recently finished a treatment for yeast infection. Reports some redness. Reports hematuria. Denies fevers, abnormal discharge, vomiting, diarrhea. GENERAL: Well-appearing, well-nourished, and in no acute distress. HEAD: Normocephalic, atraumatic. CHEST: Clear to auscultation. ?No respiratory distress. HEART: Regular rate and rhythm.? NEURO: ?Alert and oriented x3. Patient screened in triage and initial orders placed.? ?Additional care and disposition to be based upon?diagnostic testing and treatment. <Mellisa Lau PA-C - Last Filed: 08/29/24 10:00> History of Present Illness HPI Narrative: 39-year-old female with history of anxiety depression presents to emergency department with concerns for urinary tract infection. Patient states 4 days ago she developed symptoms of a yeast infection which include vaginal irritation. She was started on Diflucan and nystatin cream which she used with improvement. Yesterday she began developing dysuria, urinary urgency and incontinence, lower abdominal pain. She went to 2 urgent cares today was advised to come to the emergency department. She reports nausea but no vomiting. Denies flank pain. Denies fever, vaginal discharge or concern for STDs. She does note that she underwent a appendectomy in June with Dr. Hernandez which was uncomplicated. Denies surrounding redness or drainage from her incision sites. No history of kidney stones. <Radha Kwan PA-C - Last Filed: 08/28/24 01:09> Related Data Home medications: Home Medications ?Medication ?Instructions ?Recorded ?Confirmed ?Last Taken ?Type cholecalciferol (vitamin D3) 50 50 mcg PO DAILY 07/07/21 08/27/24 Unknown History mcg (2,000 unit) capsule docusate sodium 100 mg capsule 100 mg PO DAILY 07/07/21 08/27/24 Unknown History (Dulcolax Stool Softener (docusate)) hydroxyzine pamoate 25 mg capsule 25 mg PO TID 07/07/21 08/27/24 Unknown History (Vistaril) vitamin B complex 1 tablet PO DAILY 07/07/21 08/27/24 Unknown History famotidine 40 mg tablet 20 mg PO .At Bedtime 12/08/21 08/27/24 Unknown History dyqijmdxsmpw-Eg-kyer-minerals 18 1 tablet PO DAILY 12/08/21 08/27/24 Unknown History mg-0.4 mg tablet lactobacillus combination no.4 3 3,000 mmu cells PO DAILY 12/07/22 08/27/24 Unknown History billion cell capsule (Probiotic) lamotrigine 25 mg tablet 50 mg PO DAILY 06/13/23 08/27/24 Unknown History calcium carbonate 600 mg PO DAILY 04/02/24 08/27/24 Unknown History clonazepam 1 mg tablet 1 mg PO BID 04/02/24 08/27/24 Unknown History lubiprostone 8 mcg capsule 8 mcg PO BID 04/02/24 08/27/24 Unknown History peppermint oil 50 mg 250 mg PO DAILY 04/02/24 08/27/24 Unknown History capsule,delayed release <Mellisa Lau PA-C - Last Filed: 08/29/24 10:00> Allergies/Adverse reactions: Allergies Allergy/AdvReac Type Severity Reaction Status Date / Time amoxicillin Allergy hives Verified 08/27/24 18:03 Latex, Natural Rubber Allergy Hives Verified 08/27/24 18:03 lorazepam (From Ativan) Allergy Nausea and Verified 08/27/24 18:03 Vomiting sulfamethoxazole (From Allergy throat Verified 08/27/24 18:03 Bactrim) swelling trimethoprim (From Bactrim) Allergy throat Verified 08/27/24 18:03 swelling metoclopramide (From Reglan) AdvReac Anxiety Verified 08/27/24 18:03 <Mellisa Lau PA-C - Last Filed: 08/29/24 10:00> Review of Systems Review of Systems: All systems reviewed & are unremarkable except as noted in HPI and below <Radha Kwan PA-C - Last Filed: 08/28/24 01:09> PMFSH Past Medical History Medical History: Medical History Depression with anxiety Spinal stenosis Anxiety Nausea & vomiting UTI (urinary tract infection) Chronic UTI's after sex Stomach ulcer GERD (gastroesophageal reflux disease) Anxiety Headache, migraine Allergies <Mellisa Lau PA-C - Last Filed: 08/29/24 10:00> Surgical History Surgical History: Surgical History History of dilatation and curettage <Mellisa Lau PA-C - Last Filed: 08/29/24 10:00> Family History Family History: Family History Mother Diabetes mellitus COPD (chronic obstructive pulmonary disease) Arthrosis Father Hypertension Migraine High cholesterol Grandparent Alzheimers disease Diabetes mellitus Heart disease Grandparent Heart disease Grandparent Diabetes mellitus Arthrosis Sibling Depression Epilepsy Migraine <Mellisa Lau PA-C - Last Filed: 08/29/24 10:00> Social History Social History: Social History Smoking status: Former smoker Tobacco type: cigarettes and e-cigarettes/vaping Alcohol intake: current Alcohol use details: rare Substance use: current Substance use type: marijuana Do You Feel Safe in your Home?: Yes Lack of Transportation: No Lack of Food: Sometimes True Current Housing: I Have Housing Concerned About Future Housing: No Difficulty Paying Gas/Electric Bills: No Difficulty Paying for Meds: No Currently Unemployed: No Education: Associate Degree Difficulty w/ Childcare or Family Care: YES Living arrangements: with family Occupation/Education: occupation Gender identity (if verbalized by the patient): Female Spiritual care concerns: No <Mellisa Lau PA-C - Last Filed: 08/29/24 10:00> Exam Narrative: GENERAL: Well-appearing, well-nourished, and in no acute distress. HEAD: Normocephalic, atraumatic. EYES: EOMI. ENT: Nares clear, no rhinorrhea or epistaxis. Mucous membranes moist. NECK: Supple. CHEST: Clear to auscultation. No respiratory distress. HEART: Regular rate and rhythm. No murmur heard. Normal peripheral pulses. ABDOMEN: Normoactive bowel sounds. Abdomen soft with tenderness in the suprapubic region involuntary guarding. No rebound or rigidity. No CVA tenderness. Three well-healed postoperative incisions to the abdomen with no surrounding erythema, induration, wound dehiscence, tenderness EXTREMITIES: Normal range of motion. No edema. SKIN: Warm, dry, no rash. NEURO: No focal deficits. Alert and oriented x3 <Radha Kwan PA-C - Last Filed: 08/28/24 01:09> Course Vital Signs Vital signs: Vital Signs Temperature 97.5 F L 08/27/24 18:04 Pulse Rate 65 08/27/24 18:04 Respiratory Rate 16 08/27/24 18:04 Blood Pressure 98/58 L 08/27/24 18:04 Pulse Oximetry 100 08/27/24 18:04 Oxygen Delivery Room Air 08/27/24 18:04 Temperature 97.5 F L 08/28/24 02:29 Pulse Rate 88 08/28/24 02:29 Respiratory Rate 16 08/28/24 02:29 Blood Pressure 125/66 08/28/24 02:29 Pulse Oximetry 100 08/28/24 02:29 Oxygen Delivery Room Air 08/27/24 18:04 <BASILIO Perez Last Filed: 08/29/24 10:00> Vital Signs Temperature 97.5 F L 08/27/24 18:04 Pulse Rate 65 08/27/24 18:04 Respiratory Rate 16 08/27/24 18:04 Blood Pressure 98/58 L 08/27/24 18:04 Pulse Oximetry 100 08/27/24 18:04 Oxygen Delivery Room Air 08/27/24 18:04 Temperature 97.5 F L 08/28/24 02:29 Pulse Rate 88 08/28/24 02:29 Respiratory Rate 16 08/28/24 02:29 Blood Pressure 125/66 08/28/24 02:29 Pulse Oximetry 100 08/28/24 02:29 Oxygen Delivery Room Air 08/27/24 18:04 <Radha Kwan PA-C - Last Filed: 08/28/24 01:09> MDM - Female Genitourinary MDM Narrative Medical decision making narrative: 39-year-old female presents emergency department for 1 day of dysuria, suprapubic abdominal pain, urinary frequency. Triage vitals with soft blood pressure 98/58, otherwise unremarkable. Patient is afebrile and nontoxic appearing. Exam is significant for the above. CBC without leukocytosis or anemia. Chemistries with mild transaminitis with an AST of 48 ALT of 42. Normal alk-phos and bilirubin. Normal lipase. UA indicative of UTI with positive nitrites, greater than 100 wbc's, greater than 100 RBCs, bacteria. is negative. Lipase within normal limits. CT abdomen pelvis obtained which shows no acute pathology, no obstructive uropathy. Patient and family updated on results. Patient received IV fluids, Toradol, Zofran and a dose of Rocephin with improvement. Blood pressure improved. Suspect symptoms are secondary to UTI. Patient will be started on Keflex and given azo for bladder spasm/pain, naproxen for pain advised follow-up with her PCP. Discussed strict ED return precautions. She is agreeable with the plan verbalized understanding. Discharged in stable condition. <Radha Kwan PA-C - Last Filed: 08/28/24 01:09> Lab Data Result diagrams: 08/27/24 20:08 08/27/24 20:08 <Mellisa Lau PA-C - Last Filed: 08/29/24 10:00> Labs: Lab Results 08/27/24 08/27/24 Range/Units 18:15 20:08 WBC 9.2 (4.5-10.0) K/mm3 RBC 4.00 L (4.2-5.4) M/mm3 Hgb 12.0 (12.0-15.0) g/dL Hct 38.0 (37.0-47.0) % MCV 95.0 (80-100) fl MCH 30.0 (26-34) pg MCHC 31.6 L (32-36) g/dl RDW 13.0 (11.5-14.5) % Plt Count 188 (150-375) k/mm3 MPV 10.8 H (7.4-10.4) fl Immature Gran % (Auto) 0.2 (0-0.5) % Neut % (Auto) 74.3 H (45.5-73.1) % Lymph % (Auto) 19.1 (18.3-44.2) % [place] % (Auto) 6.1 (2.6-8.5) % Eos % (Auto) 0.1 (0-4.4) % Baso % (Auto) 0.2 (0.2-1.2) % Lymph # (Auto) 1.75 (0.9-3.2) K/mm3 [place] # (Auto) 0.6 (0.1-0.6) K/mm3 Eos # (Auto) 0.0 (0-0.3) K/mm3 Baso # (Auto) 0.0 (0.0-0.1) K/mm3 Abs Immat Gran (auto) 0.02 (0.00-0.031) K/mm3 Absolute Neuts (auto) 6.8 H (1.3-6.7) K/mm3 Absolute Nucleated RBC 0.000 (0.0-0.012) K/mm3 Nucleated RBC % 0.0 (0.0-0.2) % Sodium 139 (137-145) mmol/L Potassium 4.0 (3.4-5.0) mmol/L Chloride 102 (98-107) mmol/L Carbon Dioxide 27 (22-30) mmol/L Anion Gap 10 (4-12) mmol/L BUN 14 (7-17) mg/dL Creatinine 0.69 L (0.7-1.0) mg/dL Estim Creat Clear Calc 92 ml/min Estimated GFR > 60 (59 - ) Glucose 80 (65-110) mg/dL Calcium 8.8 (8.4-10.2) mg/dL Total Bilirubin 0.5 (0.2-1.3) mg/dL AST 40 H (14-36) U/L ALT 42 H (6-35) U/L Alkaline Phosphatase 65 (38-126) U/L Total Protein 8.0 (6.3-8.2) g/dL Albumin 4.6 (3.5-5.1) g/dL Lipase 56 (23-300) U/L Urine Color Dark yellow (Yellow) Urine Appearance Turbid H (Clear) Urine pH 6.5 (5.0-9.0) Ur Specific [place] 1.025 (1.001-1.035) Urine Protein 3+ H (Negative) mg/dL Urine Glucose (UA) Negative (Negative) mg/dL Urine Ketones Trace H (Negative) mg/dL Ur Blood (Man) 3+ H (Negative) Urine Nitrate Positive H (Negative) Urine Bilirubin 1+ H (Negative) Urine Urobilinogen 1.0 (<2.0) mg/dL Add Ur Microanalysis Reviewed Leukocyte Esterase Rfl 3+ H (Negative) AGUSTIN/UL Urine RBC >100 H (0-2) /hpf Urine WBC >100 H (0-3) /hpf Urine WBC Clumps Present H (None) /HPF Ur Squamous Epith Cells Occasional (Few) /hpf Urine Bacteria 4+ H /hpf Urine Casts 0-2 Urine Mucus Present /lpf Urine Test Negative <Mellisa Lau PA-C - Last Filed: 08/29/24 10:00> Lab Results 08/27/24 08/27/24 Range/Units 18:15 20:08 WBC 9.2 (4.5-10.0) K/mm3 RBC 4.00 L (4.2-5.4) M/mm3 Hgb 12.0 (12.0-15.0) g/dL Hct 38.0 (37.0-47.0) % MCV 95.0 (80-100) fl MCH 30.0 (26-34) pg MCHC 31.6 L (32-36) g/dl RDW 13.0 (11.5-14.5) % Plt Count 188 (150-375) k/mm3 MPV 10.8 H (7.4-10.4) fl Immature Gran % (Auto) 0.2 (0-0.5) % Neut % (Auto) 74.3 H (45.5-73.1) % Lymph % (Auto) 19.1 (18.3-44.2) % [place] % (Auto) 6.1 (2.6-8.5) % Eos % (Auto) 0.1 (0-4.4) % Baso % (Auto) 0.2 (0.2-1.2) % Lymph # (Auto) 1.75 (0.9-3.2) K/mm3 [place] # (Auto) 0.6 (0.1-0.6) K/mm3 Eos # (Auto) 0.0 (0-0.3) K/mm3 Baso # (Auto) 0.0 (0.0-0.1) K/mm3 Abs Immat Gran (auto) 0.02 (0.00-0.031) K/mm3 Absolute Neuts (auto) 6.8 H (1.3-6.7) K/mm3 Absolute Nucleated RBC 0.000 (0.0-0.012) K/mm3 Nucleated RBC % 0.0 (0.0-0.2) % Sodium 139 (137-145) mmol/L Potassium 4.0 (3.4-5.0) mmol/L Chloride 102 (98-107) mmol/L Carbon Dioxide 27 (22-30) mmol/L Anion Gap 10 (4-12) mmol/L BUN 14 (7-17) mg/dL Creatinine 0.69 L (0.7-1.0) mg/dL Estim Creat Clear Calc 92 ml/min Estimated GFR > 60 (59 - ) Glucose 80 (65-110) mg/dL Calcium 8.8 (8.4-10.2) mg/dL Total Bilirubin 0.5 (0.2-1.3) mg/dL AST 40 H (14-36) U/L ALT 42 H (6-35) U/L Alkaline Phosphatase 65 (38-126) U/L Total Protein 8.0 (6.3-8.2) g/dL Albumin 4.6 (3.5-5.1) g/dL Lipase 56 (23-300) U/L Urine Color Dark yellow (Yellow) Urine Appearance Turbid H (Clear) Urine pH 6.5 (5.0-9.0) Ur Specific [place] 1.025 (1.001-1.035) Urine Protein 3+ H (Negative) mg/dL Urine Glucose (UA) Negative (Negative) mg/dL Urine Ketones Trace H (Negative) mg/dL Ur Blood (Man) 3+ H (Negative) Urine Nitrate Positive H (Negative) Urine Bilirubin 1+ H (Negative) Urine Urobilinogen 1.0 (<2.0) mg/dL Add Ur Microanalysis Reviewed Leukocyte Esterase Rfl 3+ H (Negative) AGUSTIN/UL Urine RBC >100 H (0-2) /hpf Urine WBC >100 H (0-3) /hpf Urine WBC Clumps Present H (None) /HPF Ur Squamous Epith Cells Occasional (Few) /hpf Urine Bacteria 4+ H /hpf Urine Casts 0-2 Urine Mucus Present /lpf Urine Test Negative <Radha Kwan PA-C - Last Filed: 08/28/24 01:09> Critical Care Time Critical Care Time Critical Care Time: No <BASILIO Perez Last Filed: 08/29/24 10:00> Discharge Plan Discharge Clinical Impression: Elevated liver enzymes UTI (urinary tract infection) Qualifiers: Urinary tract infection type: site unspecified Hematuria presence: without hematuria Qualified Code(s): N39.0 - Urinary tract infection, site not specified <BASILIO Perez Last Filed: 08/29/24 10:00> Patient Disposition: Home <BASILIO Perez Last Filed: 08/29/24 10:00> Condition: Stable <BASILIO Perez Last Filed: 08/29/24 10:00> Instructions: Antibiotic Form, Urinary Tract Infection in Women (ED) <BASILIO Perez Last Filed: 08/29/24 10:00> Additional Instructions: You were evaluated in the emergency department for burning with urination and abdominal pain. Your found have a urinary tract infection. Please take antibiotics as directed. Take azo as needed for bladder spasms in naproxen as needed for pain. Follow-up closely with your primary care provider. Your also found have mild elevation in your liver enzymes, follow-up with her PCP regarding this. Return to the emergency department if you develop a fever 101 for greater, your unable to tolerate food or fluids, you develop worsening abdominal pain or other concerning symptoms. <BASILIO Perez Last Filed: 08/29/24 10:00> Patient Language: Romanian <BASILIO Perez Last Filed: 08/29/24 10:00> Prescriptions: New cephalexin 500 mg capsule 500 mg PO Q6H Qty: 28 0RF ondansetron 4 mg tablet,disintegrating 4 mg PO Q8H Qty: 14 0RF naproxen 500 mg tablet 500 mg PO BID PRN (Reason: pain) Qty: 20 0RF phenazopyridine [Pyridium] 200 mg tablet 200 mg PO TID PRN (Reason: pain) Qty: 10 0RF No Action hydroxyzine pamoate [Vistaril] 25 mg capsule 25 mg PO TID docusate sodium [Dulcolax Stool Softener (dss)] 100 mg capsule 100 mg PO DAILY vitamin B complex Tablet 1 tablet PO DAILY cholecalciferol (vitamin D3) 50 mcg (2,000 unit) capsule 50 mcg PO DAILY trazodone 100 mg tablet 150 mg PO QHS Qty: 30 0RF Rx Instructions: LAST REFILL UNTIL SEEN Probiotic 3 billion cell capsule 3,000 mmu cells PO DAILY Rx Instructions: administer with a meal clonazepam 1 mg tablet 1 mg PO BID lubiprostone 8 mcg capsule 8 mcg PO BID peppermint oil 50 mg capsule,delayed release(DR/EC) 250 mg PO DAILY calcium carbonate 600 mg calcium (1,500 mg) tablet 600 mg PO DAILY famotidine 40 mg tablet 20 mg PO .At Bedtime sxiqrreubdco-Oi-zlyw-minerals 18-0.4 mg tablet 1 tablet PO DAILY omeprazole 20 mg capsule,delayed release(DR/EC) 20 mg PO DAILY Qty: 90 1RF dicyclomine 10 mg capsule 10 mg PO QID Qty: 1 0RF lamotrigine 25 mg tablet 50 mg PO DAILY ondansetron HCl 4 mg tablet See Rx Instructions .ROUTE .COMPLEX Qty: 20 1RF Dose Instruction: TAKE 1 TABLET BY MOUTH EVERY 8 HOURS NEEDED FOR NAUSEA AND VOMITING Rx Instructions: TAKE 1 TABLET BY MOUTH EVERY 8 HOURS NEEDED FOR NAUSEA AND VOMITING <Mellisa Lau PA-C - Last Filed: 08/29/24 10:00> Follow-up/Referrals: PHYSICIAN,LEAD PRINCIPAL TECHNICAL ARCHITECT [Non-Staff] - <Mellisa Lau PA-C - Last Filed: 08/29/24 10:00>
[2024-08-27 18:57] LABS: Add Urine Microscopic? YES; Appearance Urine Turbid (Clear); Bacteria Urine 4+ /hpf; Bilirubin Urine 1+ (Negative); Blood Urine 3+ (Negative); Color Urine Dark Yellow (Yellow); Glucose Urine UA Negative (Negative); Ketones Urine Trace mg/dL (Negative); Leukocyte Esterase Ur 3+ LEU/UL (Negative); Mucus Urine Present /lpf; Need Manual Microscopic Reviewed; Nitrate Urine Positive (Negative); Non Pathogenic Casts 0-2; Protein Urine 3+ mg/dL (Negative); RBC Urine >100 /hpf (0-2); Specific Grav Ur 1.025 (1.001-1.035); Squamous Epithelial Cell Urine Occasional /hpf (Few); WBC Clumps Urine Present /HPF; WBC Urine >100 /hpf (0-3); pH Urine 6.5 (5.0-9.0)
[2024-08-27 20:18] LABS: Basophils Percent Auto 0.2 % (0.2-1.2); Eosinophils Percent Auto 0.1 % (0-4.4); Immature Granulocyte Absolute 0.02 K/mm3 (0.00-0.031); Immature Granulocyte Percent A 0.2 % (0-0.5); Lymphocytes Absolute Auto 1.75 K/mm3 (0.9-3.2); Lymphocytes Percent Auto 19.1 % (18.3-44.2); Mean Corpuscular HGB Conc 31.6 g/dl (32-36); Mean Platelet Volume 10.8 fl (7.4-10.4); Monocytes Absolute Auto 0.6 K/mm3 (0.1-0.6); Monocytes Percent Auto 6.1 % (2.6-8.5); Neutrophils Absolute Auto 6.8 K/mm3 (1.3-6.7); Neutrophils Percent Auto 74.3 % (45.5-73.1); Platelet Count Result 188 k/mm3 (150-375); White Blood Count 9.2 K/mm3 (4.5-10.0)
[2024-08-27 20:29] LABS: Alanine Aminotransferase 42 U/L (6-35); Albumin Level 4.6 g/dL (3.5-5.1); Alkaline Phosphatase 65 U/L (38-126); Anion Gap 10 mmol/L (4-12); Aspartate Amino Transferase 40 U/L (14-36); Bilirubin,Total 0.5 mg/dL (0.2-1.3); Blood Urea Nitrogen 14 mg/dL (7-17); Calcium 8.8 mg/dL (8.4-10.2); Carbon Dioxide 27 mmol/L (22-30); Chloride 102 mmol/L (98-107); Estimated CRCL calculation 92 ml/min; Estimated Glomerular Filt Rate > 60; Glucose 80 mg/dL (65-110); Lipase 56 U/L (23-300); Sodium 139 mmol/L (137-145)
--- OUTSIDE RECORDS SUMMARY | 2024-08-27 22:15 | XMS_ITS | Clinical Summary ---
Author Organization [facility] [address] [place] [id number] Care Team Providers Care Java Application Developer Name Role Phone Álvaro Colmenares DO Primary Care Provider [phone]- [phone] Allergies Active Allergy Reactions Criticality Noted Date [...] Frequency: 2 times a day Duration: Active [place]'s wort 300 mg tablet Take 300 mg [...] 03/23/2023 Assessment & Plan (03/23/2023 8:12 PM MACHINE SHOP LEAD MAN): Intermittent. May be due to hemorrhoids, colitis or less likely neoplasm. Colonoscopy is recommended and scheduled. The patient was informed about the risks, benefits and alternatives to colonoscopy. The risks including but not limited to perforation, bleeding, infection and anesthetic complications with discussed with the patient and the patient verbalized full understanding. Weight gain 03/23/2023 Assessment & Plan (03/23/2023 8:13 PM MACHINE SHOP LEAD MAN): She complain of unexplained weight gain. Denies excessive food consumption. Concerned about metabolic disease. She is referred to level vial inspector for evaluation. Hemorrhoids 07/02/2022 Assessment & Plan (07/02/2022 11:53 AM MACHINE SHOP LEAD MAN): She complain of worsening external hemorrhoids. I reviewed previous colonoscopy report (done by another engineering operator at outside facility). She was documented to [...] 11/18/2021 Assessment & Plan (03/23/2023 8:12 PM MACHINE SHOP LEAD MAN): Worsening constipation. Linzess 290 mcg was not helpful. Patient and also complain about the cost of the medication. Amitiza 8 mcg b.i.d. is prescribed. Refills on dicyclomine provided Advised to call if symptoms persist. Assessment & Plan (07/02/2022 11:56 AM MACHINE SHOP LEAD MAN): Worsening IBS symptoms (bloating, constipation and abdominal [...] (11/18/2021): Added automatically from request for surgery [id number] Assessment & Plan (03/23/2023 8:10 PM MACHINE SHOP LEAD MAN): Moderately severe. Associated with tenderness. Differential diagnosis includes esophagitis, gastritis, gastric ulcer, duodenal ulcer. EGD is recommended and scheduled. Check CBC, CMP, amylase, lipase. Nausea and vomiting 02/12/2021 Overview (11/18/2021): Added automatically from request for surgery [id number] Assessment & Plan (07/02/2022 11:57 AM MACHINE SHOP LEAD MAN): Does well with Zofran. Refills of Zofran [...] Description 08/27/2024 4:45 PM CDT Office Visit [facility] at [address] [id number] Marylu Weller NP Urinary incontinence, unspecified type (Primary Dx); Abdominal pain; Dysuria 07/06/2024 Telephone [facility] at [address] [phone] Dina Johnson MD Med Management [...] on file Legal Sex Female 12:47 AM MACHINE SHOP LEAD MAN Gender Identity Not on file Sexual Orientation [...] cm (5' 5 ) 03/23/2023 12:06 PM MACHINE SHOP LEAD MAN Body Mass Index 27.12 03/23/2023 12:06 PM MACHINE SHOP LEAD MAN Plan of Treatment Health Maintenance Due Date [...] Negative Ketones, ur, POC Trace(A) Negative Specific [place], POC 1.030 1.003 - 1.030 Blood, ur, [...] Final Result from Last 3 Months Insurance [facility] CHOICE PLUS [facility] CHOICE PLUS Care Teams Java Application Developer Relationship Specialty Start Date End Date Álvaro Colmenares DO PCP - General Internal Medicine 10/20/21
--- OUTSIDE RECORDS SUMMARY | 2024-08-27 22:15 | XMS_ITS | Referral Summary ---
Author Organization [facility] [address] [place] [id number] Care Team Providers Care Signal Engineer Name Role Phone Álvaro Colmenares DO Primary Care Provider [phone]- [phone] Encounters Date Type Department Care Team Description 08/27/2024 4:45 PM CDT Office Visit [facility] at [address] [phone] Marylu Weller NP Urinary incontinence, unspecified type (Primary Dx); Abdominal pain; Dysuria 07/06/2024 Telephone [facility] at [address] [place] [phone] Dina Johnson MD Med Management (Ondansetron/Dicycl [...] 03/23/2023 Assessment & Plan (03/23/2023 8:12 PM FIRST AID OFFICER): Intermittent. May be due to hemorrhoids, colitis or less likely neoplasm. Colonoscopy is recommended and scheduled. The patient was informed about the risks, benefits and alternatives to colonoscopy. The risks including but not limited to perforation, bleeding, infection and anesthetic complications with discussed with the patient and the patient verbalized full understanding. Weight gain 03/23/2023 Assessment & Plan (03/23/2023 8:13 PM FIRST AID OFFICER): She complain of unexplained weight gain. Denies excessive food consumption. Concerned about metabolic disease. She is referred to lead java developer architect for evaluation. Hemorrhoids 07/02/2022 Assessment & Plan (07/02/2022 11:53 AM FIRST AID OFFICER): She complain of worsening external hemorrhoids. I reviewed previous colonoscopy report (done by another stogy roller at outside facility). She was documented to [...] 11/18/2021 Assessment & Plan (03/23/2023 8:12 PM FIRST AID OFFICER): Worsening constipation. Linzess 290 mcg was not helpful. Patient and also complain about the cost of the medication. Amitiza 8 mcg b.i.d. is prescribed. Refills on dicyclomine provided Advised to call if symptoms persist. Assessment & Plan (07/02/2022 11:56 AM FIRST AID OFFICER): Worsening IBS symptoms (bloating, constipation and abdominal [...] (11/18/2021): Added automatically from request for surgery [id number] Assessment & Plan (03/23/2023 8:10 PM FIRST AID OFFICER): Moderately severe. Associated with tenderness. Differential diagnosis includes esophagitis, gastritis, gastric ulcer, duodenal ulcer. EGD is recommended and scheduled. Check CBC, CMP, amylase, lipase. Nausea and vomiting 02/12/2021 Overview (11/18/2021): Added automatically from request for surgery [id number] Assessment & Plan (07/02/2022 11:57 AM FIRST AID OFFICER): Does well with Zofran. Refills of Zofran [...] on file Legal Sex Female 12:47 AM FIRST AID OFFICER Gender Identity Not on file Sexual Orientation [...] cm (5' 5 ) 03/23/2023 12:06 PM FIRST AID OFFICER Body Mass Index 27.12 03/23/2023 12:06 PM FIRST AID OFFICER Plan of Treatment Not on file Procedures [...] Negative Ketones, ur, POC Trace(A) Negative Specific [place], POC 1.030 1.003 - 1.030 Blood, ur, [...] Final Result from Last 3 Months Insurance [facility] CHOICE PLUS [facility] PL[facility] Care Teams Signal Engineer Relationship Specialty Start Date End Date Álvaro Colmenares DO PCP - General Internal Medicine 10/20/21
--- OUTSIDE RECORDS SUMMARY | 2024-08-27 22:15 | XMS_ITS | Clinical Summary ---
Author Organization [facility] Address [address] [place] [address] Care Team Providers Care Barrel Straightener Name Role Phone Álvaro Colmenares DO Primary Care Provider [phone] Allergies Active Allergy Reactions Criticality Noted Date [...] (02/12/2021): Added automatically from request for surgery [id number] Nausea and vomiting, intract ability of vomiting not specified, unspecified vomiting type 02/12/2021 Overview (02/12/2021): Added automatically from request for surgery [id number] Epigastric pain 02/12/2021 Overview (02/12/2021): Added automatically from request for surgery [id number] Major depressive disorder in partial remission, unspecified whether recurrent 12/14/2018 Neck pain 12/14/2018 Vitamin D deficiency 12/12/2018 PUD (peptic ulcer disease) 12/12/2018 Primary insomnia 12/12/2018 Other constipation 12/12/2018 Anxiety 12/12/2018 Resolved Problems Problem Noted Date Diagnosed Date Resolved Date ([facility]) 10/25/2019 10/27/19 Missed ([facility]) 10/10/2018 Immunizations Immunization Administration Dates Next Due [...] CDT Gender Identity Female 05/07/2021 8:53 AM WEB WEAVER Sexual Orientation Straight 05/07/2021 8: 53 AM WEB WEAVER Last Filed Vital Signs Vital Sign Reading [...] patient's age to complete this topic Insurance [facility] Advance Directives * Full Code (Latest Code Status on File) Date Activated Date Inactivated Comments 10/25/2019 3:57 AM 10/25/2019 6:07 PM Care Teams Barrel Straightener Relationship Specialty Start Date End Date Álvaro Colmenares DO [address] [facility] [address] [place] [address] PCP - General INTERNAL MEDICINE 6/15/23
--- OUTSIDE RECORDS SUMMARY | 2024-08-27 22:15 | XMS_ITS | Encounter Summary ---
Author Organization [facility] Address [address] [place] [address] Care Team Providers Care Stereo Equipment Installer Name Role Phone Lola Mayorga Primary Care Provider [phone] Álvaro Colmenares DO Primary Care Provider [phone] Reason for Visit * Reason Onset Date Comments Hospital Follow Up 11/07/2019 Encounter Details Date Type Department Care Team (Late st Contact Info) Description 11/07/2019 Hospital Follow-up Call [facility] [address] [place], [place] [id number] Dori Davidson, [facility] Hospital Follow Up Social [...] CDT Gender Identity Female 05/07/2021 8:53 AM VAMP WETTER Sexual Orientation Straight 05/07/2021 8: 53 AM VAMP WETTER COVID-19 Exposure Response Date Recorded In the [...] documented as of this encounter Care Teams Stereo Equipment Installer Relationship Specialty Start Date End Date Lola Mayorga APNP [facility] [place] [address] PCP - General NURSE PRACTITIONER 12/12/18 10/06/22 Álvaro Colmenares DO [address] [facility] [address] [place] [address] PCP - General INTERNAL MEDICINE 10/07/22 documented as of this encounter
--- OUTSIDE RECORDS SUMMARY | 2024-08-27 22:15 | XMS_ITS | Encounter Summary ---
Author Organization [facility] Address [address] [place] [address] Care Team Providers Care Ladle Watcher Name Role Phone Álvaro Colmenares DO Primary Care Provider [phone] Reason for Visit * Reason Comments Abdominal Pain Abdominal pain, pelv ic pain, nausea, urinary urgency, frequency, incontinence, started yesterday. Encounter Details Date Type Department Care Team (Late st Contact Info) Description 08/27/2024 4:45 PM CDT Office Visit [facility] at [address] [address] Marylu Weller, PATIENT CASE MANAGER [address] [place] [id number] Urinary incontinence, unspecified type (Primary Dx); [...] on file Legal Sex Female 12:47 AM HOSPITAL CHIEF FINANCIAL OFFICER Gender Identity Not on file Sexual [...] Body Mass Index 27.12 03/23/2023 12:06 PM HOSPITAL CHIEF FINANCIAL OFFICER documented in this encounter Patient Instructions * Patient Instructions* Marylu Weller NP - 08/27/2024 4:45 PM CDT Patient presents with urinary incontinence and abdominal pain beginning this morning (worse than her appendicitis this year). Patient does have dysuria. Concerned for intraabdominal etiology. Lower left and right abdominal tenderness upon exam. Dx: Urinary incontinence, unspecified type Test Result Released: No (inaccessible in [facility]) 0 Result Notes Component Ref Range & Units 08/27/24 1715 Color, Urine, POC Yellow Clarity, ur, POC Clear Cloudy Abnormal Glucose, ur, POC Negative Negative Bilirubin, ur, POC Negative Negative Ketones, ur, POC Negative Trace Abnormal Specific Mccarr, POC 1.003 - 1.030 1.030 Blood, ur, [...] Negative Ketones, ur, POC Trace(A) Negative Specific Mccarr, POC 1.030 1.003 - 1.030 Blood, ur, [...] Dysuria documented in this encounter Care Teams Ladle Watcher Relationship Specialty Start Date End Date Álvaro Colmenares DO PCP - General Internal Medicine 10/20/21 documented as of this encounter
[2024-08-27 22:48] LABS: Pregnancy On Board Control Positive; Urine Pregnancy Test Negative
[2024-08-27] MEDS: ONDANSETRON INJ 4 MG/2 ML VIAL IV PUSH (23:50)
[2024-08-27] MEDS: SODIUM CHLORIDE 0.9% IV 1,000 ML 999 ML IV CONT (23:50)
[2024-08-27] MEDS: KETOROLAC 30 MG/ML VIAL (*BKC) 15 MG IV PUSH (23:51)
[2024-08-28 00:53] VITALS: BP 107/68; PULSE 70; RESP 16; TEMP 36.6; O2SAT 100
[2024-08-28 02:29] VITALS: BP 125/66; PULSE 88; RESP 16; TEMP 36.4; O2SAT 100
== END 2024-08-28 02:13 | disposition home or self-care (01) ==
PROVIDERS: Physician Assistant; Emergency Provider Physician Assistant; PCP Internal Medicine
DX: N39.0 Urinary tract infection, site not specified (principal); R74.01 Elevation of levels of liver transaminase levels; K21.9 Gastro-esophageal reflux disease without esophagitis; F41.8 Other specified anxiety disorders; Z87.891 Personal history of nicotine dependence; Z79.899 Other long term (current) drug therapy
CPT/HCPCS: 36415; 74176; 80053; 81001; 81025; 83690; 85025; 96361; 96365; 96375; 99284; J0696; J1885; J2405; J7030

== ENCOUNTER 2025-01-10 15:53 | Outpatient (NON) | payer OTHER, MEDICAID, SELFPAY ==
--- OUTSIDE RECORDS SUMMARY | 2025-01-10 15:57 | XMS_ITS | Encounter Summary ---
Author Organization [facility] Address [address] [place] [address] Care Team Providers Care Farmworker Turkey Farm Name Role Phone Lola Mayorga Primary Care Provider [phone] Álvaro Colmenares DO Primary Care Provider [phone] Reason for Visit * Reason Onset Date Comments Hospital Follow Up 11/07/2019 Encounter Details Date Type Department Care Team (Late st Contact Info) Description 11/07/2019 Hospital Follow-up Call [facility] [address] [place], [place] [id number] Dori Davidson, [facility] Hospital Follow Up Social [...] CDT Gender Identity Female 05/07/2021 8:53 AM DISTRICT SALES COORDINATOR Sexual Orientation Straight 05/07/2021 8: 53 AM DISTRICT SALES COORDINATOR COVID-19 Exposure Response Date Recorded In the [...] documented as of this encounter Care Teams Farmworker Turkey Farm Relationship Specialty Start Date End Date Lola Mayorga APNP [facility] [place] [address] PCP - General NURSE PRACTITIONER 12/12/18 10/06/22 Álvaro Colmenares DO [address] [facility] [address] [place] [address] PCP - General INTERNAL MEDICINE 10/07/22 documented as of this encounter
--- OUTSIDE RECORDS SUMMARY | 2025-01-10 15:57 | XMS_ITS | Clinical Summary ---
Author Organization [facility] Phys[facility] Office Building [address] [place] [id number] Care Team Providers Care Water Quality Control Engineer Name Role Phone Álvaro Colmenares DO Primary Care Provider [phone]- [phone] Allergies Active Allergy Reactions Criticality Noted Date [...] lamoTRIgine (LaMICtal) 25 mg tablet 3 Active dicyclomine (BENTYL) 10 mg capsule Take 1 capsule (10 mg total) by mouth 4 (four) times a day before meals and nightly 120 capsule 3 5 Active lubiprostone (AMITIZA) 8 mcg capsule TAKE ONE CAPSULE (8 MCG TOTAL) BY MOUTH TWO (TWO) TIMES A DAY WITH MEALS TAKE WITH MEALS 60 capsule 1 5 Active ondansetron (ZOFRAN) 4 mg tablet Take 1 tablet (4 mg total) by mouth every 8 (eight) hours as needed for nausea or vomiting 60 tablet 5 01/04/20 25 Active Problems Problem Noted Date Diagnosed Date Rectal bleeding 03/23/2023 Assessment & Plan (03/23/2023 8:12 PM SENIOR SECURITY ANALYST): Intermittent. May be due to hemorrhoids, colitis or less likely neoplasm. Colonoscopy is recommended and scheduled. The patient was informed about the risks, benefits and alternatives to colonoscopy. The risks including but not limited to perforation, bleeding, infection and anesthetic complications with discussed with the patient and the patient verbalized full understanding. Weight gain 03/23/2023 Assessment & Plan (03/23/2023 8:13 PM SENIOR SECURITY ANALYST): She complain of unexplained weight gain. Denies excessive food consumption. Concerned about metabolic disease. She is referred to wax ball molder for evaluation. Hemorrhoids 07/02/2022 Assessment & Plan (07/02/2022 11:53 AM SENIOR SECURITY ANALYST): She complain of worsening external hemorrhoids. I reviewed previous colonoscopy report (done by another personal financial counselor at outside facility). She was documented to [...] 11/18/2021 Assessment & Plan (03/23/2023 8:12 PM SENIOR SECURITY ANALYST): Worsening constipation. Linzess 290 mcg was not helpful. Patient and also complain about the cost of the medication. Amitiza 8 mcg b.i.d. is prescribed. Refills on dicyclomine provided Advised to call if symptoms persist. Assessment & Plan (07/02/2022 11:56 AM SENIOR SECURITY ANALYST): Worsening IBS symptoms (bloating, constipation and abdominal [...] (11/18/2021): Added automatically from request for surgery [id number] Assessment & Plan (03/23/2023 8:10 PM SENIOR SECURITY ANALYST): Moderately severe. Associated with tenderness. Differential diagnosis includes esophagitis, gastritis, gastric ulcer, duodenal ulcer. EGD is recommended and scheduled. Check CBC, CMP, amylase, lipase. Nausea and vomiting 02/12/2021 Overview (11/18/2021): Added automatically from request for surgery [id number] Assessment & Plan (07/02/2022 11:57 AM SENIOR SECURITY ANALYST): Does well with Zofran. Refills of Zofran [...] on file Legal Sex Female 12:47 AM SENIOR SECURITY ANALYST Gender Identity Not on file Sexual Orientation [...] 5:01 PM CDT Height 165.1 cm (5' 5) 03/23/2023 12:06 PM SENIOR SECURITY ANALYST Body Mass Index 27.12 03/23/2023 12:06 PM SENIOR SECURITY ANALYST Plan of Treatment Health Maintenance Due Date Last Done Comments Cervical Cancer Screening 1986 Hepatitis C Screening 1986 Regular Well Visit/Exam 18-64 2004 HPV Vaccines (1 - 3-dose SCDM series) 2013 Depression Screening 07/03/2023 07/02/2022, 11/19/19 22 Covid-19 Vaccine ( season) 2024 03/13/2021, 07/17/2020, 06/26/2020 Influenza Vaccine (#1) 2024 1, 02/26/2020, 02/06/2019, Additional history exists DTaP/Tdap/Td Vaccine (7 - Td or Tdap) 02/25/2026 02/26/2016, 10/21/2009, 07/10/1987, Additional history exists Varicella Vaccines Completed 08/23/1992, 0 11/08/1991, 07/10/1987 Hepatitis B Screening Completed 08/20/1996 , 02/22/1996, 01/17/1996, Additional history exists Pneumococcal vaccine <65 Aged Out No longer eligible based on patient's age to complete this topic Insurance [facility] Care Teams Water Quality Control Engineer Relationship Specialty Start Date End Date Álvaro Colmenares DO PCP - General Internal Medicine 10/20/21
--- OUTSIDE RECORDS SUMMARY | 2025-01-10 15:57 | XMS_ITS | Clinical Summary ---
Author Organization [facility] Address [address] [place] [address] Care Team Providers Care Orchid Grower Name Role Phone Álvaro Colmenares DO Primary Care Provider [phone] Allergies Active Allergy Reactions Criticality Noted Date Comments Amoxicillin Hives 10/06/2018 Sulfamethoxazole-Trimethoprim Anaphylaxis High 10/06 Latex Hives 10/06/2018 Penicillins Throat swelling 10/25/2019 Metoclopramide Shakiness 10/06/2018 Bupropion Unknown 10/09/2018 Medications Probiotic Product ([employer] PROBIOTIC MAXIMUM STRENGTH) Cap Take 1 capsule by mouth daily. 5 Active Misc Natural Products (SUPER CRANBERRY/C) 100-4528 MG Cap Take 1 capsule by mouth daily. 5 Active docusate sodium 100 MG capsule Take 100 mg by mouth daily. Active cyclobenzaprine 10 MG tablet TAKE 1 TABLET (10 MG) BY ORAL ROUTE 3 TIMES PER DAY NEEDED FOR BACK PAIN 0 Active traZODone (DESYREL) 100 MG tablet Take 2 tablets (200 mg total) by mouth nightly at bedtime. 0 Active omeprazole 40 MG capsule Take 40 [...] over the next 1 hour. 354 mL 1 Active hydrOXYzine 25 MG capsule Take 25 mg by mouth 3 (three) times daily as needed for Itching. Active 5-Hydroxytryptopha n (5-HTP) 100 MG Cap Take 1 tablet by mouth nightly. [address] Polo Wort 300 MG Cap Take 1 tablet by mouth 3 (three) times daily. 1 Active FAMOTIDINE 40 MG tabletIndications: Nausea,Epigastric pain TAKE 1 TABLET BY MOUTH DAILY 90 tablet 2 Active ibuprofen (MOTRIN) 600 MG tablet Take 1 tablet (600 mg total) by mouth every 6 (six) hours as needed for Pain. 30 tablet 3 Active clonazePAM (KLONOPIN) 1 MG tablet Take [...] hours as needed for Nausea. 20 tablet 4 Active traMADol (ULTRAM) 50 MG tabletIndications: Acute Pain < 7 Day Supply Take 1 tablet (50 mg total) by mouth every 8 (eight) hours as needed for Pain. Indications: Acute Pain < 7 Day Supply 21 tablet 4 Active Active Problems Problem Noted Date Diagnosed Date LUQ pain 02/12/2021 Overview (02/12/2021): Added automatically from request for surgery [id number] Nausea and vomiting, intract ability of vomiting not specified, unspecified vomiting type 02/12/2021 Overview (02/12/2021): Added automatically from request for surgery [id number] Epigastric pain 02/12/2021 Overview (02/12/2021): Added automatically from request for surgery [id number] Major depressive disorder in partial remission, unspecified whether recurrent 12/14/2018 Neck pain 12/14/2018 Vitamin D deficiency 12/12/2018 PUD (peptic ulcer disease) 12/12/2018 Primary insomnia 12/12/2018 Other constipation 12/12/2018 Anxiety 12/12/2018 Resolved Problems Problem Noted Date Diagnosed Date Resolved Date ([facility]) 10/25/2019 10/27/19 Missed ([facility]) 10/10/2018 Immunizations Immunization Administration Dates Next Due [...] CDT Gender Identity Female 05/07/2021 8:53 AM CHANNEL MANAGER Sexual Orientation Straight 05/07/2021 8: 53 AM CHANNEL MANAGER Last Filed Vital Signs Vital Sign Reading [...] 10:08 PM CDT Height 160 cm (5' 3) 11/09/2023 10:08 PM CDT Body Mass Index 29.23 11/09/2023 10:08 PM CDT Plan of Treatment Health Maintenance Due Date Last Done Comments Cervical Cancer Screening Pap Smear (Age 30 to 64) Every 3 Years 1986 Annual Physical 1989 Hepatitis C 2004 HPV Vaccines (1 - 3-dose SCDM series) 2013 Cervical Cancer Screening Pap with HPV Testing (Age 30 to 64) Every 5 Years 2016 Cervical Cancer Screening with HPV 2016 COVID-19 Vaccine ( season) 2024 03/13/2021, 07/17/2020, 06/26/2020 DTaP, Tdap and Td Vaccines (6 - Td or Tdap) 02/25/2026 02/26/2016, 10/21/2009, 1986, Additional history exists Hepatitis B Vaccines Completed 08/20/1996, 02/22/1996, 01/17/1996, Additional history exists Meningococcal B Vaccine Aged Out No l [...] patient's age to complete this topic Insurance [facility] Advance Directives * Full Code (Latest Code Status on File) Date Activated Date Inactivated Comments 10/25/2019 3:57 AM 10/25/2019 6:07 PM Care Teams Orchid Grower Relationship Specialty Start Date End Date Álvaro Colmenares DO [address] [place] [address] PCP - General INTERNAL MEDICINE 10/07/22
[2025-01-10 19:10] LABS: Add Urine Microscopic? YES; Appearance Urine Cloudy (Clear); Glucose Urine UA Negative (Negative); Leukocyte Esterase Ur Negative LEU/UL (Negative); Need Manual Microscopic Reviewed; Nitrate Urine Negative (Negative); Non Pathogenic Casts 0-2; Specific Grav Ur 1.036 (1.001-1.035)
== END 2025-01-10 15:54 | disposition home or self-care (01) ==
PROVIDERS: PCP Internal Medicine; Visit Provider Nurse Practitioner
DX: R30.0 Dysuria (principal)
CPT/HCPCS: 81001